=== PATIENT | male | born 1955 | race Caucasian/White ===

== ENCOUNTER 2019-06-18 01:02 | Day surgery (SDC) | payer BC, SELFPAY ==
[2019-06-09 09:09] VITALS: BMI 36.9
--- NOTE | 2019-06-17 16:02 | HP_ITS ---
DATE OF SERVICE: HISTORY: A 63-year-old who cannot breathe out of his nose. PHYSICAL EXAMINATION: HEENT: Septum is deviated to the right with obstruction. CHEST: Clear. HEART: Without murmurs. ABDOMEN: Soft. EXTREMITIES: Negative. REVIEW OF SYSTEMS: Unremarkable. IMPRESSION: Septal deviation. PLAN: Septoplasty. D I MT: Nida
[2019-06-18] VITALS (9 sets, daily range): BP systolic 102–150; BP diastolic 76–100; PULSE 77–105; RESP 10–18; TEMP 36.1; O2SAT 93–98
--- NOTE | 2019-06-18 06:07 | WPDHPUPDATE1 ---
History and Physical Update Update Date/Time: 06/18/19 06:07 History and Physical has been reviewed, including an updated exam of the patient. There are NO changes in the patient's condition. Risks, benefits, and alternatives have been discussed and questions answered. Patient agrees to proceed with procedure.
--- NOTE | 2019-06-18 06:10 | ECG_ITS ---
Measurements Intervals [place] Rate: 79 P: 1 ID: 150 QRS: -2 QRSD: 97 T: 29 QT: 350 QTc: 402 Interpretive Statements SINUS RHYTHM BASELINE ARTIFACT- I, II, AVR, AVL NORMAL ECG Electronically Signed On 06-18-2019 8:39:18 HOME COORDINATOR by Valentín Carlson D.O.
[2019-06-18] MEDS: LACTATED RINGERS 1,000 ML 30 ML IV CONT (08:35)
--- NOTE | 2019-06-18 09:32 | PM.PROC ---
Procedure Note - Detailed Date of procedure: 06/18/19 Pre-op diagnosis: Nasal Septal Deviation Post-op diagnosis: same Procedure performed: Patient was prepped and draped in usual fashion after general anesthesia. The nose was injected with xylocaine with Adrenalin and packed with Neosporin Tab-Synephrine on cottonoids. A [] kimber transfixation was made anterior and posterior tunnel was elevated. The bony cartilage junction . The bony deviation was removed in its entirety. The middle turbinates were then medialized and uncinectomy was done on both sides the ethmoid bulla was opened with micro debride her. Tissue was removed the natural ostia of the maxillary sinus was opened and tissue was removed the nose was then packed with Surgicel patient awakened returned to recovery good condition. Anesthesia: GLMA, GETA and none Surgeon: Marcus Kraus MD Estimated blood loss (mL): 5 Drains: No Packing: No Complications: No immediate complications Condition: stable Disposition: PACU
[2019-06-18] MEDS: LIDO 1%/EPINEPHRINE 1:100,000 20 ML VIAL 3 ML INFILTRATE (09:33)
--- NOTE | 2019-06-18 09:37 | WPDANESEPPF ---
Anes - Initial Pre Proc Eval Procedure: Operation Date: 06/18/19 10:00 Proposed Procedures p Septoplasty - Marcus Kraus MD Date/Time: 06/18/19 09:37 Surgeon: Marcus Kraus MD Pre Op Diagnosis: Nasal Septal Deviation Patient Data Age: 63 Gender: M Height: 6 ft 1 in Weight: 127 kg Last Vital Signs Temp 36.1 C L 06/18/19 08:10 Pulse 95 06/18/19 08:10 Resp 18 06/18/19 08:10 BP 149/100 H 06/18/19 08:10 Pulse Ox 98 06/18/19 08:10 Allergies Allergy/AdvReac Type Severity Reaction Status Date / Time No Known Allergies Allergy Verified 06/18/19 08:17 Home Medications Medication Instructions Recorded Confirmed Type simvastatin 40 mg tablet 40 mg PO DAILY 04/19/19 06/18/19 History amlodipine 10 mg tablet 10 mg PO DAILY #90 tablet 04/20/19 06/18/19 Rx celecoxib 200 mg capsule 200 mg PO DAILY #90 cap 04/20/19 06/18/19 Rx indapamide 1.25 mg tablet 1.25 mg PO DAILY #90 tablet 04/20/19 06/18/19 Rx lisinopril 40 mg tablet 40 mg PO DAILY #90 tablet 04/20/19 06/18/19 Rx fluticasone propionate [Flonase 1 spray INTRANASAL DAILY 06/09/19 06/18/19 History Allergy Relief] suvorexant [Belsomra] 20 mg PO QPM 06/09/19 06/18/19 History UB-DF-vlyvnq/GC-znqaak-zkzyhbi 1 cap PO Q6H PRN 06/18/19 06/18/19 History [Vicks DayQuil-NyQuil] acetaminophen [Tylenol Arthritis 650 mg PO Q12H PRN 06/18/19 06/18/19 History Pain] calcium polycarbophil [FiberCon] 625 mg PO DAILY 06/18/19 06/18/19 History loratadine 10 mg PO DAILY 06/18/19 06/18/19 History omeprazole 20 mg PO BID PRN 06/18/19 06/18/19 History Patient hx anesthesia problems: none Family hx anesthesia problems: none PMFSH Past Medical History Medical History Essential (primary) hypertension Mixed hyperlipidemia Polyarticular arthritis Stage 3 acute kidney injury Visit for [facility] Social History Social History Smoking status: Never smoker Alcohol intake: current Anes - Eval Final PreProcedure Day of Procedure 06/18/19 09:37 Patient weight: obese Heart: regular rate and rhythm Lungs: clear to auscultation Airway: Mallampati scale class II Neurological: alert and oriented Last oral intake: >/= 8 hours ASA classification: III Emergent: no Anesthetic plan: proceed Anesthesia type and monitoring: general ETT and standard monitoring Informed Consent: The patient's anesthetic plan and its attendant risks and benefits were discussed with the patient/family/POA. Questions were solicited and answers provided to the satisfaction of the patient/family/POA.
--- NOTE | 2019-06-18 09:52 | PM.PROC ---
Procedure Note - Detailed Date of procedure: 06/18/19 Pre-op diagnosis: Nasal Septal Deviation Post-op diagnosis: same Procedure performed: Patient was prepped and draped in usual fashion after general anesthesia. The nose was injected with xylocaine with Adrenalin and packed with Neosporin Tab-Synephrine on cottonoids. A [] kimber transfixation was made anterior and posterior tunnel was elevated. The bony cartilage junction . The bony deviation was removed in its entirety. The middle turbinates were then medialized and uncinectomy was done on both sides the ethmoid bulla was opened with micro debride her. Tissue was removed the natural ostia of the maxillary sinus was opened and tissue was removed the nose was then packed with Surgicel patient awakened returned to recovery good condition. Anesthesia: GLMA and GETA Surgeon: Marcus Kraus MD Estimated blood loss (mL): 25 Drains: No Packing: Yes Pathology: none sent Complications: No immediate complications Condition: stable Disposition: PACU
== END 2019-06-18 12:20 | disposition home or self-care (01) ==
PROVIDERS: PCP Family Medicine; Visit Provider Otolaryngology
PROC: (CPT 30520; principal; 2019-06-18 10:00)
DX: J34.2 Deviated nasal septum (principal); I10 Essential (primary) hypertension; E78.2 Mixed hyperlipidemia; M19.90 Unspecified osteoarthritis, unspecified site; N28.89 Other specified disorders of kidney and ureter; E66.9 Obesity, unspecified; Z68.36 Body mass index [BMI] 36.0-36.9, adult
CPT/HCPCS: 30520; 93005; A9270; J0131; J0330; J1100; J2250; J2405; J2704; J3010; J7120

== ENCOUNTER 2019-10-27 07:28 | Outpatient (CLI) | payer BC, SELFPAY ==
[2019-10-27 07:50] LABS: Hematocrit 42.2 % (42.0-52.0); Hemoglobin 14.3 g/dL (14.0-18.0); Mean Corpuscular HGB Conc 33.9 g/dl (32-36); Mean Corpuscular Hemoglobin 31.2 pg (26-34); Mean Corpuscular Volume 91.9 fl (80-100); Mean Platelet Volume 10.2 fl (7.4-10.4); Platelet Count Result 227 k/mm3 (150-375); Red Blood Count 4.59 M/mm3 (4.6-6.20); Red Cell Distribution Width 12.1 % (11.5-14.5); White Blood Count 4.6 K/mm3 (4.5-10.0)
[2019-10-27 07:59] LABS: Albumin Level 4.7 g/dL (3.5-5.1); Blood Urea Nitrogen 29 mg/dL (9-20); Calcium 9.6 mg/dL (8.4-10.2); Carbon Dioxide 27 mmol/L (22-30); Chloride 100 mmol/L (98-107); Estimated Glomerular Filt Rate 47; Glucose 111 mg/dL (75-110); Phosphorus 2.9 mg/dL (2.5-4.5); Potassium 4.4 mmol/L (3.4-5.0); Sodium 134 mmol/L (137-145)
[2019-10-27 08:13] LABS: Creatinine Urine 131.2 mg/dL; Total Protein Urine Random 9 mg/dL
[2019-10-27 08:34] LABS: Vitamin D 25 Hydroxy 48.7 ng/mL
== END 2019-10-27 07:29 | disposition home or self-care (01) ==
LOC: ANHLAB 07:29
PROVIDERS: PCP Family Medicine; Visit Provider Internal Medicine Nephrology
DX: I12.9 Hypertensive chronic kidney disease with stage 1 through stage 4 chronic kidney disease, or unspecified chronic kidney disease (principal); N18.3 Chronic kidney disease, stage 3 (moderate)
CPT/HCPCS: 36415; 80069; 82306; 82570; 83970; 84156; 85027

== ENCOUNTER 2020-01-21 11:18 | Outpatient (CLI) | payer OTHER, BC, SELFPAY ==
--- NOTE | ~2020-01-21 | XR_ITS ---
EXAMINATION: XR_[id number]_CR EXAM DATE: 01/21/2020 12:08 INDICATION: Cervicalgia, right-sided neck pain after injury. TECHNIQUE: Cervical spine frontal, lateral, lateral swimmers, and open-mouth odontoid projections. There is no prior study for comparison. FINDINGS: There is moderate disc disease at C5-6. There is 2 mm anterolisthesis C4 on C5. The odonto id process is intact. The lateral masses of C1 line up with C2. Prevertebral soft tissue and pre-den s space are within normal limits. There is moderate cervical facet arthropathy and mid cervical uncov ertebral joint arthropathy. There may be 2 or 3 mm anterolisthesis C7 on T1. Lung apices unremarkable . IMPRESSION: Moderate C5-6 disc disease. Moderate cervical arthropathy. Reviewed, dictated and finalized at location B.
--- NOTE | ~2020-01-21 | XR_ITS ---
EXAMINATION: XR shoulder RT min 2V DATE: 01/21/2020 12:08 INDICATION: Right shoulder pain. Injury. TECHNIQUE: 4 views of right shoulder were obtained. COMPARISON: None. FINDINGS: Bone alignment is normal. No fracture. There is mild osteoarthritis of glenohumeral joint a nd moderate osteoarthritis of acromioclavicular joint. A calcified right lung nodule and calcified me diastinal lymph nodes are consistent with old granulomatous disease. IMPRESSION: 1. Polyarticular osteoarthritis. Reviewed, dictated and finalized at location A.
== END 2020-01-21 11:19 | disposition home or self-care (01) ==
PROVIDERS: PCP Family Medicine; Visit Provider Nurse Practitioner Family
DX: M54.2 Cervicalgia (principal); S49.90XA Unspecified injury of shoulder and upper arm, unspecified arm, initial encounter; M15.9 Polyosteoarthritis, unspecified
CPT/HCPCS: 72040; 73030

== ENCOUNTER → 2020-02-19 10:31 | Outpatient (CLI) | payer OTHER, BC, SELFPAY ==
--- NOTE | ~2020-02-19 | MR_ITS ---
EXAMINATION: MR shoulder RT wo con, MR scapula RT wo con DATE: 02/19/2020 11:56 INDICATION: Right shoulder and upper arm pain and right upper back pain TECHNIQUE: 1. Magnetic resonance imaging (MRI) of the right shoulder was performed without intravenous contrast. Sequences included axial PD-weighted FS FSE, coronal oblique PD-weighted FS FSE, coronal oblique T2- weighted FS FSE, sagittal PD-weighted FS FSE, and sagittal T1-weighted SE. 2. MRI of the right scapula was performed without intravenous contrast. Sequences included axial, sag ittal and coronal T1-weighted FSE and T2-weighted FS FSE. COMPARISON: Right shoulder radiographs dated 01/21/2020 FINDINGS: Coracoacromial arch: The acromion undersurface is curved in morphology (type II). The coracoacromial ligament is normal. M ild to moderate acromioclavicular osteoarthritis with small inferiorly directed osteophytes which exe rts mild mass effect upon the cephalad surface of the supraspinatus but with retained thin intervenin g fat plane. Rotator cuff: Mild mild tendinopathy without discrete tear of the supraspinatus and anterior infraspinatus tendons. The teres minor and subscapularis tendons are normal. Normal rotator cuff muscle bulk and signal. Biceps tendon, glenoid labrum and glenohumeral cartilage: Long head of the biceps tendon is normal. There is increased signal in the anteroinferior and inferio r glenoid labrum consistent with likely degenerative tearing. Glenohumeral cartilage is normal. Fluid: Physiologic amount of fluid in the glenohumeral joint and biceps tendon sheath. No loose osteochondra l bodies. No abnormal fluid signal at the subacromial/subdeltoid bursa to suggest bursitis. Bones/other: Bone alignment is normal. Normal marrow signal with no fracture or pathologic marrow replacing proces s. Mild cystic change at the greater tuberosity. The posterior chest wall musculature and the ribs un derlying the scapula are unremarkable. IMPRESSION: 1. Mild supraspinatus and anterior infraspinatus tendinopathy without discrete tear. Line 2. Degeneration along the anteroinferior and inferior glenoid labrum. 3. Mild to moderate acromioclavicular osteoarthritis. Reviewed, dictated and finalized at location A. IMPRESSION: 1. Mild supraspinatus and anterior infraspinatus tendinopathy without discrete tear. Line 2. Degeneration along the anteroinferior and inferior glenoid labrum. 3. Mild to moderate acromioclavicular osteoarthritis.
== END ==
PROVIDERS: PCP Family Medicine; Visit Provider Nurse Practitioner Family
DX: S49.90XA Unspecified injury of shoulder and upper arm, unspecified arm, initial encounter (principal); X58.XXXA Exposure to other specified factors, initial encounter; M19.011 Primary osteoarthritis, right shoulder
CPT/HCPCS: 73218; 73221

== ENCOUNTER 2020-04-02 06:53 | Outpatient (CLI) | payer BC, SELFPAY ==
[2020-04-02 07:59] LABS: Hematocrit 42.6 % (42.0-52.0); Hemoglobin 14.5 g/dL (14.0-18.0); Mean Corpuscular Hemoglobin 31.5 pg (26-34); Mean Corpuscular Volume 92.6 fl (80-100); Mean Platelet Volume 10.2 fl (7.4-10.4); Platelet Count Result 254 k/mm3 (150-375); Red Cell Distribution Width 12.1 % (11.5-14.5); White Blood Count 5.6 K/mm3 (4.5-10.0)
[2020-04-02 08:10] LABS: Total Protein Urine Random 8 mg/dL; Ur Ttl Prot Creatinine Ratio 0.05 mg/mg (0-0.20)
[2020-04-02 08:15] LABS: Potassium 4.1 mmol/L (3.4-5.0)
[2020-04-02 08:16] LABS: Alanine Aminotransferase 34 U/L (4-50); Albumin Level 4.6 g/dL (3.5-5.1); Alkaline Phosphatase 70 U/L (38-126); Anion Gap 8 mmol/L (8-16); Aspartate Amino Transferase 39 U/L (17-59); Bilirubin,Total 0.6 mg/dL (0.2-1.3); Blood Urea Nitrogen 30 mg/dL (9-20); Calcium 9.7 mg/dL (8.4-10.2); Carbon Dioxide 29 mmol/L (22-30); Chloride 98 mmol/L (98-107); Cholesterol 232 mg/dL (0-200); Estimated Glomerular Filt Rate 44; Glucose 103 mg/dL (75-110); HDL Direct 37 mg/dL; Potassium 4.2 mmol/L (3.4-5.0); Sodium 135 mmol/L (137-145); Triglycerides 272 mg/dL (<150)
[2020-04-02 08:20] LABS: Albumin Level 4.5 g/dL (3.5-5.1); Anion Gap 6 mmol/L (8-16); Blood Urea Nitrogen 31 mg/dL (9-20); Calcium 9.6 mg/dL (8.4-10.2); Carbon Dioxide 30 mmol/L (22-30); Chloride 97 mmol/L (98-107); Estimated Glomerular Filt Rate 44; Glucose 102 mg/dL (75-110); Sodium 133 mmol/L (137-145)
[2020-04-02 08:27] LABS: LDL Cholesterol Direct 143 mg/dL; Parathyroid Intact 34.1 pg/mL (7.5-53.5)
[2020-04-02 08:56] LABS: Vitamin D 25 Hydroxy 39.3 ng/mL
== END 2020-04-02 06:54 | disposition home or self-care (01) ==
LOC: ANHLAB 06:55
PROVIDERS: PCP Family Medicine; Visit Provider Nurse Practitioner Family
DX: N18.30 Chronic kidney disease, stage 3 unspecified (principal); E78.2 Mixed hyperlipidemia; I12.9 Hypertensive chronic kidney disease with stage 1 through stage 4 chronic kidney disease, or unspecified chronic kidney disease
CPT/HCPCS: 36415; 80053; 80061; 80069; 82306; 82570; 83970; 84156; 84443; 85027

== ENCOUNTER 2020-08-03 15:28 | Outpatient (CLI) | payer BC, SELFPAY | END 2020-08-03 15:29 | disposition home or self-care (01) | LOC: ANHCOVIDVC 15:28 | PROVIDERS: PCP Family Medicine | DX: Z23 Encounter for immunization (principal) | CPT/HCPCS: 0001A; 91300 ==

== ENCOUNTER 2020-08-21 08:05 | Inpatient (IN) | payer BC, SELFPAY ==
[2020-08-21] VITALS (13 sets, daily range): BP systolic 114–173; BP diastolic 79–102; PULSE 68–118; RESP 10–20; TEMP 36.3–36.8; O2SAT 97–100; BMI 37.8
--- NOTE | ~2020-08-21 | XR_ITS ---
EXAMINATION: XR chest 1V portable DATE: 08/21/2020 08:31 INDICATION: Chest pain. Shortness of breath. TECHNIQUE: A single frontal view of the chest was obtained on 2 radiographs. COMPARISON: Chest 2 views 10/15/2017, chest CT 05/23/2016 FINDINGS: Calcified right lung nodules and calcified right hilar and mediastinal lymph nodes are cons istent with old granulomatous disease. No pleural effusion or pneumothorax. The heart size is normal. IMPRESSION: 1. No acute cardiopulmonary disease. Reviewed, dictated and finalized at location A.
--- NOTE | 2020-08-21 08:08 | ECG_ITS ---
Measurements Intervals [place] Rate: 120 P: 19 IN: 172 QRS: -13 QRSD: 100 T: 38 QT: 311 QTc: 440 Interpretive Statements SINUS TACHYCARDIA BASELINE ARTIFACT- II, III, AVR, AVL, AVF ABNORMAL ECG Electronically Signed On 08-21-2020 8:41:33 CDT by Valentín Carlson D.O.
[2020-08-21] MEDS: ASPIRIN 81 MG CHEWABLE TABLET 324 MG PO (08:13)
[2020-08-21 08:22] LABS: Basophils Absolute Auto 0.1 K/mm3 (0.0-0.1); Basophils Percent Auto 0.7 % (0.2-1.2); Eosinophils Absolute Auto 0.2 K/mm3 (0-0.3); Eosinophils Percent Auto 2.9 % (0-4.4); Hematocrit 44.9 % (42.0-52.0); Hemoglobin 15.1 g/dL (14.0-18.0); Immature Granulocyte Absolute 0.02 K/mm3 (0.00-0.031); Immature Granulocyte Percent A 0.2 % (0-0.5); Lymphocytes Absolute Auto 1.85 K/mm3 (0.9-3.2); Lymphocytes Percent Auto 22.9 % (18.3-44.2); Mean Corpuscular HGB Conc 33.6 g/dl (32-36); Mean Corpuscular Hemoglobin 31.4 pg (26-34); Mean Corpuscular Volume 93.3 fl (80-100); Mean Platelet Volume 10.4 fl (7.4-10.4); Monocytes Absolute Auto 1.1 K/mm3 (0.1-0.6); Monocytes Percent Auto 13.1 % (2.6-8.5); Neutrophils Absolute Auto 4.9 K/mm3 (1.3-6.7); Neutrophils Percent Auto 60.2 % (45.5-73.1); Platelet Count Result 287 k/mm3 (150-375); Red Blood Count 4.81 M/mm3 (4.6-6.20); Red Cell Distribution Width 12.2 % (11.5-14.5); White Blood Count 8.1 K/mm3 (4.5-10.0)
--- NOTE | 2020-08-21 08:23 | ECG_ITS ---
Measurements Intervals [place] Rate: 105 P: 29 WV: 145 QRS: 6 QRSD: 102 T: 43 QT: 328 QTc: 434 Interpretive Statements SINUS TACHYCARDIA ST ELEVATION IN ANTEROLAT/INF LEADS- CONSIDER ACUTE INJURY BASELINE ARTIFACT- V2, AVR, AVF ABNORMAL ECG Electronically Signed On 08-21-2020 12:28:50 CDT by Valentín Carlson D.O.
[2020-08-21 08:32] LABS: Anion Gap 10 mmol/L (8-16); Blood Urea Nitrogen 28 mg/dL (9-20); Calcium 9.5 mg/dL (8.4-10.2); Carbon Dioxide 24 mmol/L (22-30); Chloride 104 mmol/L (98-107); Estimated CRCL calculation 57 ml/min; Estimated Glomerular Filt Rate 41; Glucose 113 mg/dL (75-110); Potassium 3.9 mmol/L (3.4-5.0); Sodium 138 mmol/L (137-145)
[2020-08-21] MEDS: ONDANSETRON INJ 4 MG/2 ML VIAL IV PUSH (08:38)
--- NOTE | 2020-08-21 08:43 | ECG_ITS ---
Measurements Intervals [place] Rate: 104 P: 30 OR: 152 QRS: 3 QRSD: 99 T: 33 QT: 343 QTc: 453 Interpretive Statements SINUS TACHYCARDIA ST ELEVATION IN ANTEROLAT/INF LEADS- CONSIDER ACUTE INJURY ABNORMAL ECG Electronically Signed On 08-21-2020 12:27:49 CDT by Valentín Carlson D.O.
[2020-08-21 08:44] LABS: Troponin I 0.016 ng/mL (0.000-0.034)
[2020-08-21] MEDS: NITROGLYCERIN SL 0.4 MG TABLET SUBLINGUAL (08:44)
[2020-08-21 08:47] LABS: INR 0.9; Prothrombin Time 12.7 Seconds (11.1-14.7)
[2020-08-21 08:48] LABS: Partial Thromboplastin Time 34.1 SECONDS (22.3-36.8)
[2020-08-21] MEDS: MORPHINE SULFATE (*CRX) 2 MG/ML INJ (08:53)
[2020-08-21] MEDS: PANTOPRAZOLE SODIUM IV 40 MG VIAL IV PUSH (08:57)
--- NOTE | 2020-08-21 09:05 | PM.IMHP ---
H&P: HPI History of Present Illness Date/Time: 08/21/20 09:05 Chief Complaint: Chest pain Narrative: Date of service 08/21/2020 History: Patient is a 64-year-old male who has hypertension, hyperlipidemia, family history of coronary disease, former smoker and obesity who presented to the hospital with acute onset of chest pain today. Patient states that his chest pain started about an hour ago. Chest pain actually initially started in the arm and then went to the left upper chest area. He does describe some associated shortness of breath as well as some sweatiness. Pain is severe. It is not pleuritic. He has been given aspirin and while I am assessing the patient is given nitroglycerin. He did have mild relief of the chest pain with the nitroglycerin. He does not have diabetes. He denies any recent syncope but does have some occasional presyncopal episodes. He also has some blurry vision and a couple of times in the past he has had loss of vision in his eye. No recent paroxysmal nocturnal dyspnea, orthopnea, significant edema or palpitations. Review of Systems Review of Systems: All systems reviewed & are unremarkable except as noted in HPI and below Constitutional: Constitutional: Denies weakness Eyes: Eyes: Reports blurry vision ENT: Reports Normal hearing present Cardiovascular: Cardiovascular: Reports chest pain Respiratory: Respiratory: Reports dyspnea Gastrointestinal: Gastrointestinal: Denies abdominal pain Genitourinary: Genitourinary: Denies dysuria Musculoskeletal: Musculoskeletal: Denies neck pain Integumentary/Breasts: Skin/Breast: Denies dry skin Neurologic: Denies headache(s) Psychiatric: Psychiatric: Reports anxiety Endocrine: Endocrine: Denies fatigue Hematologic/Lymphatic: Hematologic/Lymphatic: Denies easy bleeding Allergic/Immunologic: Allergic/Immunologic: Denies GI upset with certain foods PMFSH Past Medical History Medical History Arthritis of shoulder region, right, degenerative BMI 36.0-36.9,adult Capsulitis of right shoulder Deviated septum Essential (primary) hypertension Mixed hyperlipidemia Polyarticular arthritis Right rotator cuff tendinitis Right shoulder strain Seasonal allergies Stage 3 acute kidney injury Trigger point of right shoulder region Vision abnormalities Visit for [facility] check Surgical History Surgical History History of appendectomy Family History Family History Mother Hypertension Alzheimer disease Father Family history of coronary artery disease Acute myocardial infarction Sibling Family history of coronary artery disease Cerebrovascular accident Other Family history of malignant neoplasm Social History Social History Smoking packs per day: 1 Smoking cigarettes per day: 20.0 Years smoked: 40 Smoking pack-years: 40.00 Tobacco type: cigarettes Smoking end date: 04/29/09 Alcohol intake: never 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 Gender identity (if verbalized by the patient): Male Meds Home Medications and Allergies Home Medications Medication Instructions Recorded Confirmed Type fluticasone propionate [Flonase 1 spray INTRANASAL DAILY 06/09/19 08/21/20 History Allergy Relief] loratadine 10 mg PO DAILY 06/18/19 08/21/20 History celecoxib 200 mg capsule 200 mg PO DAILY #90 cap 04/01/20 08/21/20 Rx simvastatin 40 mg tablet 40 mg PO DAILY #20 tablet 04/26/20 08/21/20 Rx amlodipine 10 mg tablet 10 mg PO DAILY #90 tablet 05/18/20 08/21/20 Rx indapamide 1.25 mg tablet 1.25 mg PO DAILY #90 tablet 05/18/20 08/21/20 Rx lisinopril 40 mg tablet 40 mg PO DAILY #90 tablet 05/18/20 08/21/20 Rx suvorexant 20 mg tablet 20 mg PO QPM #30
[2020-08-21 09:18] LABS: Cholesterol 193 mg/dL (0-200); HDL Direct 35 mg/dL; Triglycerides 284 mg/dL (<150)
--- NOTE | 2020-08-21 09:22 | WPDCARDPROC ---
Cardiac Cath Procedure Note Date of procedure:: 08/21/20 Performing physician:: Mayank Lomeli MD Date of service 08/21/2020 Indication:: Possible STEMI Brief clinical history:: this 64-year-old patient with past medical history of hypertension, hyperlipidemia and family history of CAD since the hospital for shortness of breath left arm pain. EKG shows subtle ST elevations V 5 And V 6. RISKS AND BENEFITS OF CARDIAC CATHETERIZATION DISCUSSED WITH PATIENT HE AGREES TO PROCEED. Procedure Procedure performed:: 1-Moderate sedation that started at9:33 a.m. and ended at 10:22 a.m. using 3mg of Versed and 75mcg fentanyl. The registered nurse was Gayle Mcnamara. 2-Selective left and right coronary angiogram. 3-Left heart catheterization with measurement of LVEDP and measurement of gradient across aortic valve. 4-Right common femoral arterial angiogram. 5-Deployment of 6 Nepali Angio-Seal. 6- deployment of a drug-eluting stent 3 x 18 covering totally occluded mid left circumflex artery. 7- Deployment of drug-eluting stent 2x12 resolute mahin drug-eluting stent to mid OM 1. Sedation/Medication given:: Moderate sedation. Access site:: Right common femoral artery. Estimated blood loss:: 10cc Procedure note:: After informed consent patient was brought in to clinical laboratory medical director with the was draped and prepped in usual manner. Moderate sedation was given and the right groin was infiltrated using 1% lidocaine. Six Nepali sheath was obtained using micropuncture needle and the modified Seldinger technique. Selective left coronary angiogram was done using JL4 catheter with the tip of the catheter placed in the left main coronary artery. Selective right coronary angiogram was done using JR4 catheter with the tip of the catheter placed to the right coronary artery. After that 5 Nepali pigtail catheter was advanced across the aortic valve into the left ventricle with measurement of LVEDP and measurement of gradient across aortic valve. Right common femoral arterial angiogram was done. after that a guide catheter CLS 3.5 was not successful to engage the left main. We used JL4 guide catheter. Then after that coronary luge wire was advanced to the distal left circumflex artery. Balloon angioplasty was done using 3 x 12 balloon under nominal pressure for 25 seconds 2 inflations. Then deployed drug-eluting stent Xience 3 x 18 covering mid left circumflex artery under nominal pressure for 25 seconds. after that the wire was retrieved and advanced to the OM 1. balloon angioplasty done using 2 x 12 balloon under normal pressure for 25 seconds. Then deployed drug-eluting stent mahin 2 x 12 to mid OM 1 under nominal pressure for 25 seconds Findings:: 1- left coronary artery is a large artery that divides into large LAD, large circumflex artery. distal Left main has 30%. 2- left anterior descending artery is a large artery that runs and wraps around the apex. in the mid segment there is 30% stenosis followed by another 30% stenosis and after Diagonal branch there is 30-40% stenosis. the diagonal branch is medium in size with minimal irregularities. 3- leftcircumflex artery is a large artery Totally occluded in the mid segment. There is OM 1 that is small in size and has in the meds 99%. 4- right coronary artery is Large artery and dominant and has a mid segment diffuse 20-30%. 5- LVEDP was 10 mm Hg and no gradient across aortic valve. 6- opening arterial pressure was 150/80 and closing pressure was 130/70 7- right femoral artery angiogram shows no significant disease in the right common femoral artery. Conclusion:: 1- successful stenting of totally occluded mid left circumflex artery using drug-eluting stent 3 x 18. 2- successful stenting of mid OM1 using 2 x 12 drug-eluting stent. Assessment and Plan Additional Plan 1- Continue aspirin and Brilinta. 2- aggressive risk factor modification for CAD.
--- NOTE | 2020-08-21 09:23 | ED.CHESTPAIN ---
HPI - Chest Pain General Chief Complaint: Chest Pain Stated Complaint: SOB with left arm pain Time Seen by Provider: 08/21/20 08:09 Source: patient Mode of arrival: ambulatory Limitations: no limitations History of Present Illness HPI narrative: This is a 64 year old male with history hypertension, hyperlipidemia, chronic kidney disease who presents for evaluation of left arm pain and indigestion. He states his pain started 30 minutes prior to arrival. He was sitting at rest and he develop left posterior arm pain and left chest pain that he describes as indigestion. He took an unknown medication for his indigestion without relief. He also took aspirin 162 mg at home prior to coming. He has dizziness and sob. He denies history cardiac disease. He states years ago he had a stress test because he had chest pain. This episode is different because he did not have left arm pain at that time. His pain is 8/10. He also reports dizziness. Related Data Home Medications Medication Instructions Recorded Confirmed fluticasone propionate [Flonase 1 spray INTRANASAL DAILY 06/09/19 08/21/20 Allergy Relief] loratadine 10 mg PO DAILY 06/18/19 08/21/20 atorvastatin 40 mg PO HS 08/21/20 08/21/20 Allergies Allergy/AdvReac Type Severity Reaction Status Date / Time tramadol AdvReac Severe Unknown Verified 08/21/20 08:12 Review of Systems Review of Systems: All systems reviewed & are unremarkable except as noted in HPI and below Constitutional: Constitutional: Denies chills, Denies fever(s) and Reports weakness ENT: Reports vertigo Cardiovascular: Cardiovascular: Reports chest pain Respiratory: Respiratory: Denies cough and Reports dyspnea Gastrointestinal: Gastrointestinal: Denies abdominal pain, Denies diarrhea, Reports nausea and Denies vomiting Neurologic: Reports headache(s) [facility] Past Medical History Medical History Arthritis of shoulder region, right, degenerative BMI 36.0-36.9,adult Capsulitis of right shoulder Deviated septum Essential (primary) hypertension Mixed hyperlipidemia Polyarticular arthritis Right rotator cuff tendinitis Right shoulder strain Seasonal allergies Stage 3 acute kidney injury Trigger point of right shoulder region Vision abnormalities Visit for [facility] health check Surgical History Surgical History History of appendectomy Family History Family History Mother Hypertension Alzheimer disease Father Family history of coronary artery disease Acute myocardial infarction Sibling Family history of coronary artery disease Cerebrovascular accident Other Family history of malignant neoplasm Social History Social History Smoking packs per day: 1 Smoking cigarettes per day: 20.0 Years smoked: 40 Smoking pack-years: 40.00 Smoking status: Former smoker Tobacco type: cigarettes Second hand tobacco smoke exposure: No Smoking end date: 04/29/09 Alcohol intake: former Substance use: never Substance use type: does not use 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 Gender identity (if verbalized by the patient): Male Spiritual care concerns: No Exam Const: General: alert Orientation/consciousness: patient oriented x3 HENMT: Head: normocephalic and atraumatic Ears: TM's normal bilaterally General nose exam: Normal external nose present, Normal nares present and No nasal polyps present Face and sinus: face symmetric Mouth: Yes Normal oral and palatal mucosa present, Yes lip normal, Yes oropharynx normal and Yes moist mucous membranes Throat: uvula midline Eyes: Pupils: Equal, round and reactive pupils present EOM: EOMs intact bilaterally Chest: Chest palpation & inspection: normal
--- NOTE | 2020-08-21 09:26 | WPDMODSED ---
Moderate Sedation Note-Pt Data Patient Data Allergies Allergy/AdvReac Type Severity Reaction Status Date / Time tramadol AdvReac Severe Unknown Verified 08/21/20 08:12 Home Medications Medication Instructions Recorded Confirmed Type fluticasone propionate [Flonase 1 spray INTRANASAL DAILY 06/09/19 08/21/20 History Allergy Relief] loratadine 10 mg PO DAILY 06/18/19 08/21/20 History celecoxib 200 mg capsule 200 mg PO DAILY #90 cap 04/01/20 08/21/20 Rx simvastatin 40 mg tablet 40 mg PO DAILY #20 tablet 04/26/20 08/21/20 Rx amlodipine 10 mg tablet 10 mg PO DAILY #90 tablet 05/18/20 08/21/20 Rx indapamide 1.25 mg tablet 1.25 mg PO DAILY #90 tablet 05/18/20 08/21/20 Rx lisinopril 40 mg tablet 40 mg PO DAILY #90 tablet 05/18/20 08/21/20 Rx suvorexant 20 mg tablet 20 mg PO QPM #30 tablet 05/23/20 08/21/20 Rx Sedation/Anesthesia: No previous sedation/anesthesia problems (including family history). [facility] Past Medical History Medical History Arthritis of shoulder region, right, degenerative BMI 36.0-36.9,adult Capsulitis of right shoulder Deviated septum Essential (primary) hypertension Mixed hyperlipidemia Polyarticular arthritis Right rotator cuff tendinitis Right shoulder strain Seasonal allergies Stage 3 acute kidney injury Trigger point of right shoulder region Vision abnormalities Visit for [facility] health check Surgical History Surgical History History of appendectomy Family History Family History Mother Hypertension Alzheimer disease Father Family history of coronary artery disease Acute myocardial infarction Sibling Family history of coronary artery disease Cerebrovascular accident Other Family history of malignant neoplasm Social History Social History Smoking packs per day: 1 Smoking cigarettes per day: 20.0 Years smoked: 40 Smoking pack-years: 40.00 Tobacco type: cigarettes Smoking end date: 04/29/09 Alcohol intake: never 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 Gender identity (if verbalized by the patient): Male Mod Sed Physical Exam Physical Exam Pre Procedural Exam: Normal: Appearance, Eyes, Ears, Nose, Neck, Throat, Airway, Lungs, Heart Size, Heart Rate, Heart Rhythm, Neuro Exam, Abdomen, Liver, Kidneys, Spleen, Breasts, Genitalia, Extremities and Skin Hours since solid foods: 8 Hours since liquid intake: 8 Internal Medicine - PN: Obj Da Vital Signs Vital Signs: Vital Signs - 24 hr 08/21/20 08:09 08/21/20 08:42 08/21/20 08:59 Temperature 36.8 C Pulse Rate 118 H 110 H 102 H Respiratory Rate 20 20 20 Blood Pressure 173/98 H 151/102 H 126/88 Pulse Oximetry 100 100 100 08/21/20 09:00 08/21/20 09:17 Temperature Pulse Rate 101 H 100 Respiratory Rate 20 20 Blood Pressure 123/91 H 148/94 H Pulse Oximetry 100 100 Meds/Results Radiology Results: ITS Impressions Chest X-Ray 08/21/20 08:34 IMPRESSION: 1. No acute cardiopulmonary disease. Labs CBC & Chem 7: 08/21/20 08:15 08/21/20 08:15 Labs: Laboratory Results - last 24 hr 08/21/20 08/21/20 08/21/20 08:15 08:15 08:15 WBC 8.1 RBC 4.81 Hgb 15.1 Hct 44.9 MCV 93.3 MCH 31.4 MCHC 33.6 RDW 12.2 Plt Count 287 MPV 10.4 Immature Gran % (Auto) 0.2 Neut % (Auto) 60.2 Lymph % (Auto) 22.9 Delta % (Auto) 13.1 H Eos % (Auto) 2.9 Baso % (Auto) 0.7 Lymph # (Auto) 1.85 Delta # (Auto) 1.1 H Eos # (Auto) 0.2 Baso # (Auto) 0.1 Abs Immat Gran (auto) 0.02 Absolute Neuts (auto) 4.9 Absolute Nucleated RBC 0.0 Nucleated RBC % 0.0 PT 12.7 INR 0.9 APTT 34.1 Sodium 138 Potassium 3.9 Chloride 104 Carbon Dioxide
[2020-08-21 09:28] LABS: LDL Cholesterol Direct 117 mg/dL
--- NOTE | 2020-08-21 10:56 | ECG_ITS ---
Measurements Intervals [place] Rate: 70 P: 15 WI: 160 QRS: -5 QRSD: 109 T: 43 QT: 405 QTc: 439 Interpretive Statements SINUS RHYTHM WITH SINUS ARRHYTHMIA EARLY PRECORDIAL R/S TRANSITION BASELINE ARTIFACT- I, II, III, AVR, AVL, AVF BORDERLINE ECG Electronically Signed On 08-21-2020 20:08:38 CDT by Valentín Carlson D.O.
[2020-08-21] MEDS: SODIUM CHLORIDE 0.9% IV 1,000 ML 125 ML IV CONT (11:14)
--- NOTE | 2020-08-21 11:30 | ADMGEN ---
This patient, Pedro Joshua, was admitted to Intensive Care Unit-9. Patient/family oriented to hospital policies and general routines including ID bracelet, bed and alarms, visiting hours, pain management, procedures, bathroom and other care routines, personal items, smoking policy, room service/diet, and visiting hours. Information on how to activate the Rapid Response Team has been discussed. Patient/Family are encouraged to report perceived risks to care and to ask questions if they do not understand what they are told or what they should do.
--- NOTE | 2020-08-21 15:26 | PHAR ---
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
[2020-08-21] MEDS: PHARMACIST COMMUNICATION ORDER 1 EACH XX (15:34)
[2020-08-21] MEDS: ATORVASTATIN 40 MG TABLET PO (21:09)
[2020-08-21] MEDS: TICAGRELOR 90 MG TABLET PO (21:10)
[2020-08-22] VITALS (15 sets, daily range): BP systolic 102–134; BP diastolic 64–100; PULSE 66–108; RESP 10–20; TEMP 36.5–36.9; O2SAT 96–99
[2020-08-22 04:57] LABS: Anion Gap 6 mmol/L (8-16); Blood Urea Nitrogen 21 mg/dL (9-20); Calcium 8.7 mg/dL (8.4-10.2); Carbon Dioxide 29 mmol/L (22-30); Chloride 100 mmol/L (98-107); Estimated CRCL calculation 66 ml/min; Estimated Glomerular Filt Rate 47; Glucose 106 mg/dL (75-110); Sodium 135 mmol/L (137-145)
[2020-08-22] MEDS: ASPIRIN 81 MG ENTERIC TABLET PO (08:31)
[2020-08-22] MEDS: lisinopriL 20 MG TABLET 40 MG PO (08:31)
[2020-08-22] MEDS: INDAPAMIDE 1.25 MG TABLET PO (08:31)
[2020-08-22] MEDS: LORATADINE 10 MG TABLET PO (08:31)
[2020-08-22] MEDS: TICAGRELOR 90 MG TABLET PO ×2 (08:31→20:40)
[2020-08-22] MEDS: ATORVASTATIN 40 MG TABLET PO ×2 (08:32→20:40)
[2020-08-22] MEDS: amLODIPine BESYLATE 5 MG TABLET 10 MG PO (08:32)
[2020-08-22] MEDS: FLUTICASONE PROPIONATE 0.05% NA SPR 16 GM BTL (*BKC) 1 SPRAY NASAL (08:32)
--- NOTE | 2020-08-22 11:04 | WPDCNINT ---
Assessment and Plan Assessment and plan (1) STEMI (ST elevation myocardial infarction): Code(s): I21.3 - ST elevation (STEMI) myocardial infarction of unspecified site Status: Acute Assessment and Plan: Patient presented with chest pain, shortness of breath, diaphoresis, radiation of the pain to the left arm, EKG showed concerning for acute injury. Patient was taken to the [facility] where he was found to have an occlusion of his mid right circumflex and mid OM1. Patient received MAUREEN x1 to mid right circumflex and MAUREEN x1 to mid OM1 -no arrhythmias noted overnight -cardiology following the patient -continue aspirin, Brilinta, -will discuss with cardiology regarding beta-blockers (2) CKD (chronic kidney disease), stage III: Code(s): N18.30 - Chronic kidney disease, stage 3 unspecified Status: Acute Assessment and Plan: Urine output has been adequate, creatinine trending down will continue to monitor (3) Mixed hyperlipidemia: Code(s): E78.2 - Mixed hyperlipidemia Status: Acute Assessment and Plan: Continue atorvastatin (4) Essential (primary) hypertension: Code(s): I10 - Essential (primary) hypertension Status: Acute Assessment and Plan: Continue amlodipine, lisinopril, indapamide (5) Former tobacco use: Code(s): Z87.891 - Personal history of nicotine dependence Status: Acute Assessment and Plan: Does not smoke anymore Additional Plan Discussed with patient updated him with his condition and plan of care, I answered all his questions Code status: Full code Critical care time spent: 41 minutes This dictation may have been done utilizing a voice recognition system. Attempts have been made to correct errors. However, there may be uncorrected grammatical, spelling, and recognition errors present. Due to a high probability of clinically significant, life threatening deterioration, the patient required my highest level of preparedness to intervene emergently and I personally spent this critical care time directly and personally managing the patient. This critical care time included obtaining a history; examining the patient; pulse oximetry; ordering and review of studies; arranging urgent treatment with development of a management plan; evaluation of patient's response to treatment; frequent reassessment; and discussions with other providers. It was exclusive of separately billable procedures and treating other patients and teaching time. Please see Assessment and Plan section and the rest of the note for further information on patient assessment and treatment School Janitor Consult Note Consult date: 08/22/20 Time Seen: 07:14 Reason for consult: ST-elevation [place] status post MAUREEN x1 to mid left circumflex, MAUREEN x1 to mid OM1 HPI: Pedro Joshua is a 64 year old male With significant past medical history of essential hypertension, hyperlipidemia, stage 3 kidney disease, arthritis, family history for coronary artery disease, former smoker, obesity presented the ED on 08/21/2020 complains of acute onset of chest pain that started 1 hour prior to arrival to the ED. Patient complained that the pain radiated to left arm and was associated with shortness of breath and diaphoresis. He rated the pain as severe, was given aspirin and nitroglycerin with mild relief in the chest pain. EKG showed ST- T changes in the inferior and laterally. Patient was taken to the [facility] where he was found to have an occluded mid circumflex and mid OM1, each of the arteries received MAUREEN x1. Patient was transferred to the ICU for further management Patient seen examined this morning, no arrhythmias overnight. Patient has been slightly tachycardic. Denies any chest pain, shortness of breath, abdominal pain, nausea, vomiting. Patient has had adequate urine output has been afebrile. His creatinine improved from 1.7 to 1.5 this morning. Review of Systems Review of Systems: Yovanny
--- NOTE | 2020-08-22 11:49 | ECHO_ITS ---
Patient Info Name: Pedro Joshua Age: 64 years : 1955 Gender: Male Ht: 73 in Wt: 299 lbs BSA: 2.70 m2 HR: 97 bpm BP: 130 / 86 mmHg Heart Rhythm: Sinus Rhythm Technical Quality: Good Exam Date: 08/22/2020 2:43 PM Exam Location: [facility] Card Pulmonary Patient Status: Inpatient Admit Date: 08/21/2020 Staff Ordering Physician: Erasmo Goyal MD Crystal Syrup Maker: Ricky Barakat, JEFERSON, RT Attending Provider: Mayank Lomeli MD Referring Physician: Jyotsna JIMÉNEZ; Exam Type: CA echo dop color flow w con Study Info Indications I50.9 - Heart failure, unspecified Contrast/Agitated Saline Contrast/Ag. Saline: Definity Amount: 2.00 ml Administered By: Farrah Mackenzie RN Existing IV Access: Yes IV Access Condition: patent with no signs of infiltration Summary 1. Technically difficult study with limited views. Regional wall motion assessment limited despite definity contrast enhancement. 2. There is moderately increased left ventricular wall thickness. 3. Left ventricular systolic function is normal, estimated at 55%. 4. The left ventricular diastolic function is grade I diastolic dysfunction. 5. Right atrial chamber dimension is mildly enlarged. 6. There is no aortic valve stenosis. 7. There is mild mitral valve regurgitation. 8. There is mild tricuspid valve regurgitation. 9. No pulmonary hypertension, estimated pulmonary arterial systolic pressure is 26 mmHg. Left Ventricle Left ventricular chamber dimension is normal. Left ventricular systolic function is normal, estimated at 55%. There is moderately increased left ventricular wall thickness. The left ventricular diastolic function is grade I diastolic dysfunction. Technically difficult study with limited views. Regional wall motion assessment limited despite definity contrast enhancement. Right Ventricle Right ventricular chamber dimension is normal. Right ventricular systolic function is normal. Left Atria Left atrial chamber dimension is normal. Right Atria Right atrial chamber dimension is mildly enlarged. Aortic Valve The aortic valve is trileaflet. There is no aortic valve stenosis. There is trace aortic valve regurgitation. Pulmonic Valve The pulmonic valve is not well visualized. There is mild pulmonic regurgitation. Mitral Valve The mitral valve has normal leaflets. There is mild mitral valve regurgitation. The mitral valve annulus is mildly calcified. Tricuspid Valve The tricuspid valve leaflets are normal. There is mild tricuspid valve regurgitation. No pulmonary hypertension, estimated pulmonary arterial systolic pressure is 26 mmHg. Pericardium/Pleural The pericardium appears epicardial fat pad. There is trivial pericardial effusion. Aorta The aortic root size at the sinus of Valsalva is normal. Left Ventricular Outflow Tract Name Value Normal LVOT 2D LVOT Diameter 2.19 cm LVOT Doppler LVOT Peak Velocity 88.34 cm/s LVOT Peak Gradient 3 mmHg LVOT Mean Gradient 2 mmHg
--- NOTE | 2020-08-22 14:07 | PM.PNCARD ---
Progress Note: A&P Assessment and Plan (1) ACS (acute coronary syndrome): Code(s): I24.9 - Acute ischemic heart disease, unspecified Status: Acute Assessment and Plan: Status post STEMI doing well status post MAUREEN 3 x 18 mm Xience to mid L Cx and 2x12mm Royal to mid OM1. Continue dual antiplatelet therapy and Brilinta. Aspirin 81 mg daily. Initiate metoprolol tartrate 25 mg b.i.d.. Continue lisinopril 40 mg daily, atorvastatin 40 mg at bedtime. -will obtain 2D echocardiogram. -transfer to telemetry bed this afternoon. If stable overnight without new concerns anticipate discharge home tomorrow follow up as an outpatient with Dr. Real Parra. -we discussed post cardiac catheterization precautions, plans for cardiac rehabilitation an additional restrictions post myocardial infarction. -cont telemetry to monitor for ventricular arrhythmias. (2) Essential (primary) hypertension: Code(s): I10 - Essential (primary) hypertension Status: Acute Assessment and Plan: Fair control at this time. Continue current medical therapy. (3) Mixed hyperlipidemia: Code(s): E78.2 - Mixed hyperlipidemia Status: Acute Assessment and Plan: On statin LDL 117 goal LDL less than 70. (4) Obesity: Code(s): E66.9 - Obesity, unspecified Status: Acute Assessment and Plan: Lifestyle modification counseling. (5) Former tobacco use: Code(s): Z87.891 - Personal history of nicotine dependence Status: Acute Assessment and Plan: Must remain smoke-free (6) Family history of premature coronary artery disease: Code(s): Z82.49 - Family history of ischemic heart disease and other diseases of the circulatory system Status: Acute Assessment and Plan: Brother had bypass and dad from a myocardial infarction (7) CKD (chronic kidney disease), stage III: Code(s): N18.30 - Chronic kidney disease, stage 3 unspecified Status: Acute Assessment and Plan: Stable, creatinine 1.5 this morning. Subjective Date/time seen: Date of service: 08/22/20 14:07 Follow-up for ST-elevation [place] Doing well overnight. No recurrent chest pain or significant shortness of breath. No dizziness. Ambulating without great difficulty. Denies leg pain. Tolerating medications. No significant arrhythmias on telemetry. Intermittent sinus tachycardia noted however. at bedside. Discussed patient's care plans and precautions. All questions answered to their satisfaction. Review of Systems Review of Systems: All systems reviewed & are unremarkable except as noted in HPI and below Constitutional: Constitutional: Denies fatigue, Denies headache(s) and Denies weakness Eyes: Eyes: Reports blurry vision ENT: Reports Normal hearing present, Denies headache(s) and Denies neck pain Cardiovascular: Cardiovascular: Reports chest pain and Reports dyspnea Respiratory: Respiratory: Reports dyspnea Gastrointestinal: Gastrointestinal: Denies abdominal pain Genitourinary: Genitourinary: Denies dysuria Musculoskeletal: Musculoskeletal: Denies neck pain Integumentary/Breasts: Skin/Breast: Denies dry skin Neurologic: Reports Normal hearing present, Denies headache(s) and Denies weakness Psychiatric: Psychiatric: Reports anxiety Endocrine: Endocrine: Denies fatigue Hematologic/Lymphatic: Hematologic/Lymphatic: Denies easy bleeding Allergic/Immunologic: Allergic/Immunologic: Denies GI upset with certain foods Exam Narrative: Exam Narrative: Awake alert oriented. Appears in distress and uncomfortable. Appears stated age Const: General: in distress and uncomfortable HENMT: General nose exam: Normal nares present Eyes: Sclera: sclerae normal Neck: Neck: supple and no JVD Chest: Other: No reproducible chest wall pain to palpation Resp: Auscultation: clear to auscultation bilaterally Cardio: Rate: regular rate Rhythm: regular rhythm GI
[2020-08-22] MEDS: PERFLUTREN LIPID MICROSPHERES 1.5 ML VIAL DILUTED TO 10 ML TOTAL VOLUME IV PUSH (15:20)
[2020-08-22] MEDS: METOPROLOL TARTRATE 25 MG TABLET PO ×2 (15:25→20:39)
[2020-08-23] VITALS: PULSE 64; PULSE 67; RESP 18
[2020-08-23 04:00] VITALS: PULSE 65
[2020-08-23 04:57] LABS: Hematocrit 43.4 % (42.0-52.0); Hemoglobin 14.7 g/dL (14.0-18.0); Mean Corpuscular HGB Conc 33.9 g/dl (32-36); Mean Corpuscular Hemoglobin 31.3 pg (26-34); Mean Corpuscular Volume 92.5 fl (80-100); Mean Platelet Volume 10.4 fl (7.4-10.4); Platelet Count Result 211 k/mm3 (150-375); Red Blood Count 4.69 M/mm3 (4.6-6.20); Red Cell Distribution Width 12.4 % (11.5-14.5); White Blood Count 8.9 K/mm3 (4.5-10.0)
[2020-08-23 05:14] LABS: Anion Gap 5 mmol/L (8-16); Blood Urea Nitrogen 20 mg/dL (9-20); Carbon Dioxide 30 mmol/L (22-30); Chloride 99 mmol/L (98-107); Estimated CRCL calculation 62 ml/min; Estimated Glomerular Filt Rate 44; Glucose 99 mg/dL (75-110); Sodium 134 mmol/L (137-145)
[2020-08-23] MEDS: FLUTICASONE PROPIONATE 0.05% NA SPR 16 GM BTL (*BKC) 1 SPRAY NASAL (07:50)
[2020-08-23] MEDS: ASPIRIN 81 MG ENTERIC TABLET PO (07:50)
[2020-08-23 07:51] VITALS: PULSE 79
[2020-08-23] MEDS: TICAGRELOR 90 MG TABLET PO (07:51)
[2020-08-23] MEDS: LORATADINE 10 MG TABLET PO (07:51)
[2020-08-23] MEDS: lisinopriL 20 MG TABLET 40 MG PO (07:51)
[2020-08-23] MEDS: METOPROLOL TARTRATE 25 MG TABLET PO (07:51)
[2020-08-23] MEDS: amLODIPine BESYLATE 5 MG TABLET 10 MG PO (07:51)
[2020-08-23] MEDS: INDAPAMIDE 1.25 MG TABLET PO (07:52)
[2020-08-23 07:58] VITALS: BP 112/71; PULSE 85; RESP 11; TEMP 36.4; O2SAT 96
[2020-08-23 07:59] VITALS: PULSE 81; RESP 11; O2SAT 96
[2020-08-23 08:00] VITALS: PULSE 74
--- NOTE | 2020-08-23 09:46 | PM.DS ---
DS: Admitting Diagnosis Admitting Diagnosis Admitting Diagnosis: Lateral ST-elevation ID DS: Discharge Diagnosis Discharge Diagnosis (1) STEMI (ST elevation myocardial infarction): Code(s): I21.3 - ST elevation (STEMI) myocardial infarction of unspecified site Status: Acute DS: Summary Hospital Course Hospital Course: Hospital course: 64-year-old male with hypertension, dyslipidemia, obesity, history of tobacco abuse. Patient presented to [facility] with complaints of chest pain; was found to have ST elevation in the lateral leads. He underwent primary PCI-Xience everolimus eluting 3 x 18 mid LCX; 2x12 resolute mahin drug-eluting stent to mid OM 1. LVEF was normal on echocardiogram. Post PCI hospital course segment uneventful. On the day of discharge, patient was chest pain-free and was eager to go home. Time Spent with Patient Time attestation: Date of admission: 08/21/2020 Date of discharge: 08/23/2020 Total time spent providing and/or coordinating discharge services:42 minutes Exam Narrative: Exam Narrative: PHYSICAL EXAMINATION: GENERAL: Alert, oriented, no acute distress MENTAL STATUS: affect appropriate to mood EYES: Extraocular movements intact, no pallor EARS: External ears appear normal, decreased hearing NOSE: Normal and patent, no discharge MOUTH: Mucous membranes moist, tongue normal NECK: Supple, no JVD CHEST: Good respiratory effort, clear to auscultation HEART: Normal rate, regular rhythm, normal S1 and S2, no audible murmurs ABDOMEN: Soft, nontender NEUROLOGICAL: Alert, oriented, normal speech, no gross motor deficits MUSCULOSKELETAL: No major deformity, no amputation EXTREMITIES: No pedal edema, right groin access site unremarkable SKIN: no rash on the exposed area, no cyanosis PSYCHIATRIC: Normal mood, appropriate affect DS: Data Data Completed and Pending Labs on day of discharge: Labs from last 24 hours 08/23/20 08/23/20 04:38 04:38 WBC 8.9 RBC 4.69 Hgb 14.7 Hct 43.4 MCV 92.5 MCH 31.3 MCHC 33.9 RDW 12.4 Plt Count 211 MPV 10.4 Sodium 134 L Potassium 4.0 Chloride 99 Carbon Dioxide 30 Anion Gap 5 L BUN 20 Creatinine 1.60 H Estim Creat Clear Calc 62 Estimated GFR 44 L Glucose 99 Calcium 9.0 Discharge Plan Discharge Attending physician on discharge: Galo Patrick Consulting providers: Harmeet Zhao Discharging Clinician: Galo Patrick Patient Disposition: Home, Self-Care Activity: other - see discharge instructions Diet: heart healthy Discharge Instructions: No lifting, pushing or pulling more than 10 pounds for 1 week. No strenuous exercise or activity (including sexual activity) for 1 week. May shower but NO tub baths/hot tubs/swimming pools for 1 week (they are too hot). DO NOT STOP YOUR MEDICATIONS! ONLY YOUR DISTRIBUTION TECHNICIAN CAN STOP Keep your stent card in your wallet at all times Read food labels for high levels of sodium, avoid fried foods, eat more fruits and vegetables, do not add additional salt to meals. If you miss 1 dose of Brilinta take a tablet at the next time due. If you miss 2 doses take a tablet when you remember and resume at the next time due. Stay hydrated Patient Instructions: Chest Pain (DC), Acute Coronary Syndrome (DC) Stand Alone Forms: General Discharge Information Follow-up/Referrals: Mayank Lomeli MD [Physician] - (Follow-up in 2-4 weeks. Please call our office for appointment, if you do not hear from our staff in next 2-3 days.) Discharge Medications: New atorvastatin 40 mg Tablet 80 mg PO DAILY 30 Days Qty: 60 RF: 0 aspirin 81 mg Tablet,Delayed Release (Dr/Ec) 81 mg PO QAM 30 Days Qty: 30 RF: 0 metoprolol tartrate 25 mg Tablet 25 mg PO Q12HR 30 Days Qty: 60 RF: 0 Brilinta 90 mg Tablet 90 mg PO Q12HR 30 Days Qty: 60 RF: 0 Continued fluticasone propionate [Flonase Allergy Relief] 50 mcg/actuation Lomita,Alyx
--- NOTE | 2020-08-23 11:57 | PCCPR ---
called to discuss cardiac rehab with pt; interested
== END 2020-08-23 10:14 | disposition home or self-care (01) | DRG 247 ==
LOC: ANHCATHLAB 09:49 → ANHED 10:43 → ANHICU 16:24 → ANHED 08-25 16:08 → ANHICU 08-25 16:09
PROVIDERS: Internal Medicine Cardiovascular Disease; Admitting Provider Internal Medicine Cardiovascular Disease; Emergency Provider General Practice; PCP Family Medicine; Visit Provider Internal Medicine Cardiovascular Disease
PROC: 4A023N7 Measurement of Cardiac Sampling and Pressure, Left Heart, Percutaneous Approach (ICD-10-PCS; CPT 93452; principal; 2020-08-21 09:10)
PROC: 027135Z Dilation of Coronary Artery, Two Arteries with Two Drug-eluting Intraluminal Devices, Percutaneous Approach (ICD-10-PCS; 2020-08-21 09:10)
PROC: 027135Z Dilation of Coronary Artery, Two Arteries with Two Drug-eluting Intraluminal Devices, Percutaneous Approach (ICD-10-PCS; 2020-08-21 09:10)
PROC: 027135Z Dilation of Coronary Artery, Two Arteries with Two Drug-eluting Intraluminal Devices, Percutaneous Approach (ICD-10-PCS; 2020-08-21 09:10)
DX: I21.3 ST elevation (STEMI) myocardial infarction of unspecified site (principal); I12.9 Hypertensive chronic kidney disease with stage 1 through stage 4 chronic kidney disease, or unspecified chronic kidney disease; N18.30 Chronic kidney disease, stage 3 unspecified; E78.5 Hyperlipidemia, unspecified; M19.011 Primary osteoarthritis, right shoulder; E66.9 Obesity, unspecified; Z68.39 Body mass index [BMI] 39.0-39.9, adult; Z87.891 Personal history of nicotine dependence
CPT/HCPCS: 36415; 71045; 80048; 80061; 84484; 85025; 85027; 85610; 85730; 86850; 86900; 86901; 93005; 93458; 96374; 99285; A9270; C1725; C1760; C1769; C1874; C1887; C1894; C8929; C9113; C9601; C9606; G0269; J0583; J1644; J2250; J2270; J2405; J3010; J7030; J7040; Q9957

== ENCOUNTER 2020-08-31 15:04 | Outpatient (CLI) | payer BC, SELFPAY | END 2020-08-31 15:05 | disposition home or self-care (01) | LOC: ANHCOVIDVC 15:04 | PROVIDERS: PCP Family Medicine | DX: Z23 Encounter for immunization (principal) | CPT/HCPCS: 0002A; 91300 ==

== ENCOUNTER 2020-09-01 10:04 | Outpatient (CLI) | payer BC, SELFPAY ==
[2020-09-01 10:32] LABS: Anion Gap 9 mmol/L (8-16); Blood Urea Nitrogen 24 mg/dL (9-20); Calcium 10.1 mg/dL (8.4-10.2); Carbon Dioxide 27 mmol/L (22-30); Chloride 99 mmol/L (98-107); Estimated Glomerular Filt Rate 41; Glucose 106 mg/dL (75-110); Potassium 4.7 mmol/L (3.4-5.0); Sodium 135 mmol/L (137-145)
== END 2020-09-01 10:05 | disposition home or self-care (01) ==
PROVIDERS: PCP Family Medicine; Visit Provider Nurse Practitioner Family
DX: I21.3 ST elevation (STEMI) myocardial infarction of unspecified site (principal); N18.30 Chronic kidney disease, stage 3 unspecified
CPT/HCPCS: 36415; 80048

== ENCOUNTER 2020-10-01 06:55 | Outpatient (CLI) | payer BC, SELFPAY ==
[2020-10-01 07:33] LABS: Albumin Level 4.7 g/dL (3.5-5.1); Anion Gap 13 mmol/L (8-16); Blood Urea Nitrogen 40 mg/dL (9-20); Calcium 9.8 mg/dL (8.4-10.2); Carbon Dioxide 21 mmol/L (22-30); Chloride 104 mmol/L (98-107); Estimated Glomerular Filt Rate 30; Glucose 106 mg/dL (75-110); Phosphorus 3.2 mg/dL (2.5-4.5); Potassium 4.8 mmol/L (3.4-5.0); Sodium 138 mmol/L (137-145)
[2020-10-01 07:36] LABS: Creatinine Urine 212.9 mg/dL; Total Protein Urine Random 8 mg/dL; Ur Ttl Prot Creatinine Ratio 0.04 mg/mg (0-0.20)
== END 2020-10-01 06:56 | disposition home or self-care (01) ==
PROVIDERS: PCP Family Medicine; Referring Provider Family Medicine; Visit Provider Internal Medicine Nephrology
DX: N18.31 Chronic kidney disease, stage 3a (principal)
CPT/HCPCS: 36415; 80069; 82570; 84156

== ENCOUNTER 2020-11-26 07:02 | Outpatient (CLI) | payer BC, SELFPAY ==
[2020-11-26 08:46] LABS: Add Urine Microscopic? YES; Appearance Urine Clear (Clear); Bilirubin Urine Negative (Negative); Blood Urine 1+ (Negative); Color Urine Yellow (Yellow); Glucose Urine UA Negative (Negative); Ketones Urine Negative (Negative); Leukocyte Esterase Ur Negative LEU/UL (NEGATIVE); Mucus Urine Rare /lpf; Nitrate Urine Negative (Negative); Protein Urine Negative (Negative); RBC Urine 0-2 /hpf (0-2); Specific Grav Ur 1.018 (1.001-1.035); Urobilinogen Urine Negative mg/dL (<2.0); WBC Urine 0-3 /hpf (0-3)
[2020-11-26 08:52] LABS: Albumin Level 4.5 g/dL (3.5-5.1); Anion Gap 12 mmol/L (8-16); Blood Urea Nitrogen 31 mg/dL (9-20); Calcium 9.6 mg/dL (8.4-10.2); Carbon Dioxide 22 mmol/L (22-30); Chloride 101 mmol/L (98-107); Estimated Glomerular Filt Rate 47; Glucose 99 mg/dL (65-110); Phosphorus 3.4 mg/dL (2.5-4.5); Potassium 4.8 mmol/L (3.4-5.0); Sodium 135 mmol/L (137-145)
[2020-11-26 09:48] LABS: Creatinine Urine 120.9 mg/dL
[2020-11-26 09:59] LABS: Sodium Urine Random 68 meq/L
[2020-11-26 11:22] LABS: Eosinophil Urine None Seen % (None Seen)
== END 2020-11-26 07:03 | disposition home or self-care (01) ==
PROVIDERS: PCP Family Medicine; Visit Provider Internal Medicine Nephrology
DX: N18.31 Chronic kidney disease, stage 3a (principal)
CPT/HCPCS: 36415; 80069; 81001; 82570; 84300; 85999

== ENCOUNTER 2021-02-04 06:56 | Outpatient (CLI) | payer BC, SELFPAY ==
[2021-02-04 07:38] LABS: Hematocrit 43.2 % (42.0-52.0); Hemoglobin 14.1 g/dL (14.0-18.0); Mean Corpuscular HGB Conc 32.6 g/dl (32-36); Mean Corpuscular Hemoglobin 31.4 pg (26-34); Mean Corpuscular Volume 96.2 fl (80-100); Mean Platelet Volume 10.4 fl (7.4-10.4); Platelet Count Result 266 k/mm3 (150-375); Red Blood Count 4.49 M/mm3 (4.6-6.20); Red Cell Distribution Width 12.5 % (11.5-14.5); White Blood Count 6.2 K/mm3 (4.5-10.0)
[2021-02-04 07:48] LABS: Creatinine Urine 136.3 mg/dL
[2021-02-04 07:57] LABS: Albumin Level 4.8 g/dL (3.5-5.1); Anion Gap 10 mmol/L (8-16); Blood Urea Nitrogen 32 mg/dL (9-20); Calcium 9.4 mg/dL (8.4-10.2); Carbon Dioxide 28 mmol/L (22-30); Chloride 101 mmol/L (98-107); Estimated Glomerular Filt Rate 47; Glucose 102 mg/dL (65-110); Phosphorus 3.5 mg/dL (2.5-4.5); Potassium 4.5 mmol/L (3.4-5.0); Sodium 139 mmol/L (137-145)
[2021-02-04 08:06] LABS: Parathyroid Intact 36.5 pg/mL (7.5-53.5)
[2021-02-04 08:12] LABS: Total Protein Urine Random < 5 mg/dL; Ur Ttl Prot Creatinine Ratio < 0.04 mg/mg (0-0.20)
== END 2021-02-04 06:57 | disposition home or self-care (01) ==
PROVIDERS: PCP Family Medicine; Visit Provider Internal Medicine Nephrology
DX: N18.31 Chronic kidney disease, stage 3a (principal)
CPT/HCPCS: 36415; 80069; 82570; 83970; 84156; 85027

== ENCOUNTER 2021-03-01 06:49 | Outpatient (CLI) | payer BC, SELFPAY ==
[2021-03-01 07:50] LABS: Cholesterol 148 mg/dL (0-200); HDL Direct 39 mg/dL; Triglycerides 161 mg/dL (<150)
[2021-03-01 08:01] LABS: LDL Cholesterol Direct 77 mg/dL
== END 2021-03-01 06:50 | disposition home or self-care (01) ==
LOC: ANHLAB 06:51
PROVIDERS: PCP Family Medicine; Visit Provider Internal Medicine Cardiovascular Disease
DX: E78.2 Mixed hyperlipidemia (principal)
CPT/HCPCS: 36415; 80061

== ENCOUNTER 2021-04-15 06:47 | Outpatient (CLI) | payer BC, SELFPAY ==
[2021-04-15 07:14] LABS: Anion Gap 7 mmol/L (8-16); Blood Urea Nitrogen 20 mg/dL (9-20); Calcium 9.2 mg/dL (8.4-10.2); Carbon Dioxide 29 mmol/L (22-30); Chloride 99 mmol/L (98-107); Estimated Glomerular Filt Rate 51; Glucose 110 mg/dL (65-110); Potassium 4.5 mmol/L (3.4-5.0); Sodium 135 mmol/L (137-145)
== END 2021-04-15 06:48 | disposition home or self-care (01) ==
LOC: ANHLAB 06:49
PROVIDERS: PCP Family Medicine; Visit Provider Nurse Practitioner Family
DX: N17.9 Acute kidney failure, unspecified (principal)
CPT/HCPCS: 36415; 80048

== ENCOUNTER 2021-08-07 09:51 | Outpatient (CLI) | payer BC, SELFPAY ==
[2021-08-07 10:26] LABS: Albumin Level 4.8 g/dL (3.5-5.1); Anion Gap 7 mmol/L (8-16); Blood Urea Nitrogen 20 mg/dL (9-20); Carbon Dioxide 28 mmol/L (22-30); Chloride 100 mmol/L (98-107); Estimated Glomerular Filt Rate > 60; Glucose 97 mg/dL (65-110); Phosphorus 3.5 mg/dL (2.5-4.5); Potassium 4.7 mmol/L (3.4-5.0); Sodium 135 mmol/L (137-145)
[2021-08-07 11:23] LABS: Creatinine Urine 79.3 mg/dL
[2021-08-07 12:05] LABS: Total Protein Urine Random < 5 mg/dL; Ur Ttl Prot Creatinine Ratio < 0.06 mg/mg (0-0.20)
== END 2021-08-07 09:52 | disposition home or self-care (01) ==
PROVIDERS: PCP Family Medicine; Visit Provider Internal Medicine Nephrology
DX: N18.1 Chronic kidney disease, stage 1 (principal)
CPT/HCPCS: 36415; 80069; 82570; 84156

== ENCOUNTER 2021-10-03 08:40 | Outpatient (CLI) | payer MEDICARE, SELFPAY ==
--- NOTE | ~2021-10-03 | XR_ITS ---
XR finger 2nd LT min 2V DATE: 10/03/2021 09:00 INDICATION: Injury 2 months ago. Pain. TECHNIQUE: 4 views COMPARISON: None FINDINGS: There is osteoarthritic change including moderate spurring at the distal interphalangeal josé luis int. No fracture or dislocation, periosteal reaction or bone destruction, subcutaneous emphysema or radiop aque foreign body is noted. IMPRESSION: No fracture or dislocation Distal interphalangeal joint osteoarthritis Reviewed, dictated and finalized at location A.
== END 2021-10-03 08:41 | disposition home or self-care (01) ==
LOC: ANHIMG 08:45
PROVIDERS: PCP Family Medicine; Visit Provider Nurse Practitioner Family
DX: S69.90XA Unspecified injury of unspecified wrist, hand and finger(s), initial encounter (principal); X58.XXXA Exposure to other specified factors, initial encounter; M19.032 Primary osteoarthritis, left wrist
CPT/HCPCS: 73140

== ENCOUNTER 2021-11-07 09:00 | Outpatient (RCR) | payer MEDICARE, SELFPAY ==
--- NOTE | 2021-10-23 11:02 | OTOPEVAL ---
OCCUPATIONAL THERAPY EVALUATION REPORT 10/23/21 Pedro is a 66 year-old, right handed male who sustained an injury to his left index finger 2+ months ago and did not seek treatment until recently. 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 Skilled OT indicated for HEP instruction and progression as well as use of thermal modalities for stiffness and pain. Issued HEP today and plan to reassess patient's ROM and progress next week. Will send a formal reassessment update before he follows up with on 11/03/21. Thank you for referring Pedro Joshua to [facility].? The patient is scheduled to be seen for therapy?1x/week for 2 weeks. Please review, sign, date and return this plan of care RAY. I agree with and certify that the following plan of care is medically necessary. Referring Physician Date Referring Provider: Donny López MD *OT Outpatient Evaluation Start: 10/23/21 10:08 Therapy Assessment Status Assessment Status Assessment Status Evaluation Outpatient Past Medical History Neurological History Hx Neurological Disorders No Significant History Cardiovascular History Hx Hypercholesterolemia Yes Hx Hypertension Yes Respiratory History Hx Bronchitis Yes Gastrointestinal History Hx Appendectomy Yes Genitourinary History Hx Renal Disease Yes Musculoskeletal History Hx Musculoskeletal Disorders No Significant History Hematological History Hx Hematological Disorders No Significant History Endocrine History Hx Endocrine Disorders No Significant History HEENT History Hx Sinus Problems Yes Integumentary History Hx Skin Disorders No Significant History Reproductive History Hx Reproductive Disorders No Significant History Psychosocial History Hx Anxiety Yes Pain History History of Any Previous or Ongoing No Significant History Instance of Pain Anesthesia History Hx Anesthesia Reactions No Significant History Evaluation Information Problem Diagnosis Pain, stiffness left index finger, DIP joint Onset July 2021 Subjective Information Patient reports feeling a Query Text:As Reported By Patient/ popping sensation when he was Family trying to pull some boots on back in July. He states the finger swelled and was bruised on the volar side. He reports residual stiffness in the finger, mostly at the DIP joint, which restricts his ability to use that finger for gripping tasks. He states he has been avoiding using that finger during ADLs and
--- NOTE | 2021-10-31 09:48 | OTOPEVAL ---
OCCUPATIONAL THERAPY RE-EVALUATION REPORT AND POC UPDATE 10/31/21 Pedro is a 66 year-old, right handed male who sustained an injury to his left index finger 2+ months ago and did not seek treatment until recently. He was initially evaluated by OT 1 week ago and was issued ROM HEP. Today he was re-evaluated and improvements have been noted at each joint. Index MCP and PIP flexion have returned to normal limits at 90*. DIP flexion improved from 20* to 60*. He is now able to make a near normal composite fist and a hook fist is only measuring 1.5-2 cm gap, compared to 3 cm gap last week. Overall, his rehab potential appears excellent as his functional flexibility responds well to paraffin, manual therapy, and exercise. Will recommend he continue to follow up with therapy 1x/week for another 2-3 weeks to progress HEP as tolerated. Thank you for referring Pedro Joshua to [facility].? The patient is scheduled to be seen for therapy? 1x/week for 2-3 weeks. Please review, sign, date and return this plan of care RAY. I agree with and certify that the following plan of care is medically necessary. Referring Physician Date Referring Provider: Donny López MD Re-Evaluation Information Diagnosis Pain, stiffness left index finger, DIP joint Onset July 2021 Subjective Information Patient has been working on Query Text:As Reported By Patient/ his HEP x1 week and has been Family noticing some progress with functional ROM and use. He has been using that finger for more tasks, such as opening bottles. At the start of care he was still avoiding using the left index finger and would leave it sticking out when gripping items and now he states he incorporates that finger with all tasks. His biggest complaint is that the finger still feels stiff. Reminded him that we have only been working for a week and have noticed great progress with ROM and strength. Pain Assessment Timing of Pain Assessment Timing of Pain Assessment Re-assessment Pain Scale Pain Scale Used Numeric (1 - 10) Self Report Pain Assessment Left Finger, Index Reported Pain Level 0 Pain Score Pain Score 0: Self Report Additional Pain Score Comments Reports no pain at rest or with active ROM. States he has some pain with gripping/pinching his putty. Upper Extremity Range of Motion Finger Range of Motion Left Index Finger MCP Joint Flexion - Active 90 Index Finger PIP Joint Flexion - Active 90 Index Finger PIP Joint Extension -
--- NOTE | 2021-11-07 09:36 | PCOTNOTE ---
OCCUPATIONAL THERAPY D/C NOTIFICATION 11/07/21 Patient:Pedro Joshua Date of :1955 Pedro presents today for OT session stating that he is ready to be discharged. His HEP was reviewed and he was upgraded to the next resistive theraputty. 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 Please refer to most recent progress note, dated 10/31/21, for most recent ROM measurements. The goals have been met. Thank you for referring this patient to [facility]. Please review, sign, date and return this discharge summary RAY. I have been updated about the patient's current status and I agree with discharge from the above service at this time. Referring Physician Date Referring Provider: Donny López MD
== END 2021-11-08 10:15 | disposition home or self-care (01) ==
LOC: ANHOT 09:00
PROVIDERS: PCP Family Medicine; Visit Provider Plastic Surgery
DX: S69.91XA Unspecified injury of right wrist, hand and finger(s), initial encounter (principal); M79.641 Pain in right hand; M25.641 Stiffness of right hand, not elsewhere classified; M62.81 Muscle weakness (generalized)
CPT/HCPCS: 97018; 97110; 97140; 97165

== ENCOUNTER 2022-02-14 06:58 | Outpatient (CLI) | payer MEDICARE, SELFPAY ==
[2022-02-14 07:34] LABS: Hematocrit 44.8 % (42.0-52.0); Hemoglobin 14.9 g/dL (14.0-18.0); Mean Corpuscular HGB Conc 33.3 g/dl (32-36); Mean Corpuscular Hemoglobin 32.2 pg (26-34); Mean Corpuscular Volume 96.8 fl (80-100); Mean Platelet Volume 9.7 fl (7.4-10.4); Platelet Count Result 244 k/mm3 (150-375); Red Blood Count 4.63 M/mm3 (4.6-6.20); Red Cell Distribution Width 12.6 % (11.5-14.5); White Blood Count 5.2 K/mm3 (4.5-10.0)
[2022-02-14 07:49] LABS: Albumin Level 4.5 g/dL (3.5-5.1); Anion Gap 12 mmol/L (8-16); Blood Urea Nitrogen 21 mg/dL (9-20); Carbon Dioxide 26 mmol/L (22-30); Chloride 101 mmol/L (98-107); Estimated Glomerular Filt Rate > 60; Glucose 108 mg/dL (65-110); Phosphorus 2.8 mg/dL (2.5-4.5); Potassium 3.9 mmol/L (3.4-5.0); Sodium 139 mmol/L (137-145)
[2022-02-14 07:51] LABS: Alanine Aminotransferase 32 U/L (6-50); Albumin Level 4.5 g/dL (3.5-5.1); Alkaline Phosphatase 74 U/L (38-126); Anion Gap 8 mmol/L (8-16); Aspartate Amino Transferase 46 U/L (17-59); Bilirubin,Total 0.9 mg/dL (0.2-1.3); Blood Urea Nitrogen 22 mg/dL (9-20); Carbon Dioxide 27 mmol/L (22-30); Chloride 103 mmol/L (98-107); Cholesterol 111 mg/dL (0-200); Estimated Glomerular Filt Rate > 60; Glucose 107 mg/dL (65-110); HDL Direct 39 mg/dL; Potassium 4.1 mmol/L (3.4-5.0); Sodium 138 mmol/L (137-145); Triglycerides 64 mg/dL (<150)
[2022-02-14 07:56] LABS: Total Protein Urine Random < 5 mg/dL; Ur Ttl Prot Creatinine Ratio < 0.04 mg/mg (0-0.20)
[2022-02-14 08:02] LABS: LDL Cholesterol Direct 53 mg/dL
[2022-02-14 08:03] LABS: Parathyroid Intact 50.7 pg/mL (7.5-53.5)
[2022-02-14 08:20] LABS: Prostate Specific Antigen 0.6 ng/mL (< OR = 4.0)
== END 2022-02-14 06:59 | disposition home or self-care (01) ==
PROVIDERS: PCP Family Medicine; Referring Provider Internal Medicine Nephrology; Visit Provider Nurse Practitioner Family
DX: I10 Essential (primary) hypertension (principal); E78.2 Mixed hyperlipidemia; N52.9 Male erectile dysfunction, unspecified; Z12.5 Encounter for screening for malignant neoplasm of prostate; N18.32 Chronic kidney disease, stage 3b
CPT/HCPCS: 36415; 80053; 80061; 80069; 82570; 83970; 84153; 84156; 84443; 85027; G0103

== ENCOUNTER 2023-01-15 09:30 | Outpatient (RCR) | payer MEDICARE, SELFPAY ==
[2022-11-27 10:54] VITALS: BMI 35.6
[2022-11-27 14:15] VITALS: BMI 35.6
[2023-01-15 09:45] VITALS: BMI 34.4; BMI 35.6
== END 2023-02-11 11:13 | disposition home or self-care (01) ==
LOC: ANHDMC 09:30
PROVIDERS: PCP Family Medicine; Visit Provider Family Medicine
DX: R63.5 Abnormal weight gain (principal); N18.31 Chronic kidney disease, stage 3a; I21.3 ST elevation (STEMI) myocardial infarction of unspecified site; Z71.3 Dietary counseling and surveillance
CPT/HCPCS: 97802; 97803

== ENCOUNTER 2023-02-25 07:18 | Outpatient (CLI) | payer MEDICARE, SELFPAY ==
[2023-02-25 08:07] LABS: Anion Gap 4 mmol/L (8-16); Blood Urea Nitrogen 18 mg/dL (9-20); Calcium 9.5 mg/dL (8.4-10.2); Carbon Dioxide 32 mmol/L (22-30); Chloride 100 mmol/L (98-107); Estimated Glomerular Filt Rate > 60; Glucose 125 mg/dL (65-110); Potassium 3.9 mmol/L (3.4-5.0); Sodium 136 mmol/L (137-145)
== END 2023-02-25 07:19 | disposition home or self-care (01) ==
PROVIDERS: PCP Family Medicine; Visit Provider Internal Medicine Cardiovascular Disease
DX: N18.31 Chronic kidney disease, stage 3a (principal)
CPT/HCPCS: 36415; 80048

== ENCOUNTER 2023-03-04 01:14 | Day surgery (SDC) | payer MEDICARE, SELFPAY ==
[2023-03-01 15:00] VITALS: BMI 33.1
[2023-03-04] VITALS (9 sets, daily range): BP systolic 137–189; BP diastolic 91–102; PULSE 63–104; RESP 12–18; TEMP 36.4–36.5; O2SAT 95–99; BMI 34.0
[2023-03-04 07:30] LABS: Basophils Percent Auto 0.6 % (0.2-1.2); Eosinophils Absolute Auto 0.3 K/mm3 (0-0.3); Eosinophils Percent Auto 3.9 % (0-4.4); Hematocrit 50.1 % (42.0-52.0); Hemoglobin 16.4 g/dL (14.0-18.0); Immature Granulocyte Absolute 0.02 K/mm3 (0.00-0.031); Immature Granulocyte Percent A 0.3 % (0-0.5); Lymphocytes Absolute Auto 1.28 K/mm3 (0.9-3.2); Lymphocytes Percent Auto 18.3 % (18.3-44.2); Mean Corpuscular HGB Conc 32.7 g/dl (32-36); Mean Corpuscular Hemoglobin 31.2 pg (26-34); Mean Corpuscular Volume 95.4 fl (80-100); Mean Platelet Volume 9.6 fl (7.4-10.4); Monocytes Absolute Auto 0.7 K/mm3 (0.1-0.6); Monocytes Percent Auto 9.7 % (2.6-8.5); Neutrophils Absolute Auto 4.7 K/mm3 (1.3-6.7); Neutrophils Percent Auto 67.2 % (45.5-73.1); Platelet Count Result 250 k/mm3 (150-375); Red Blood Count 5.25 M/mm3 (4.6-6.20); Red Cell Distribution Width 12.6 % (11.5-14.5)
[2023-03-04 07:39] LABS: Anion Gap 8 mmol/L (8-16); Blood Urea Nitrogen 17 mg/dL (9-20); Calcium 9.5 mg/dL (8.4-10.2); Carbon Dioxide 27 mmol/L (22-30); Chloride 102 mmol/L (98-107); Estimated CRCL calculation 95 ml/min; Estimated Glomerular Filt Rate > 60; Glucose 107 mg/dL (65-110); Potassium 3.8 mmol/L (3.4-5.0); Sodium 137 mmol/L (137-145)
--- NOTE | 2023-03-04 08:37 | WPDMODSED ---
Moderate Sedation Note-Pt Data Patient Data Diagnosis: Coronary artery disease with previous [place]/PCI to circumflex nonsustained ventricular tachycardia Present Complaint: no complaints Procedure to be performed/Plan: follow-up coronary angiography Allergies Allergy/AdvReac Type Severity Reaction Status Date / Time tramadol AdvReac Severe tongue Verified 03/04/23 07:12 swelling lisinopril AdvReac Intermediate Swelling Verified 03/04/23 07:12 of Lip/Tongue/Throat Home Medications Medication Instructions Recorded Confirmed Type fluticasone propionate 50 1 spray intranasal DAILY 06/09/19 03/01/23 History mcg/actuation nasal spray,suspension (Flonase Allergy Relief) aspirin 81 mg tablet,delayed 81 mg PO QAM 30 days #30 tabs 08/23/20 03/01/23 Rx release loratadine 10 mg capsule 10 mg PO DAILY 01/19/21 03/01/23 History albuterol sulfate 1.25 mg/3 mL 1.25 mg (3 mL) inhalation Q4-6H 05/22/21 03/01/23 Rx solution for nebulization PRN shortness of breath or wheezing #75 mL sildenafil 100 mg tablet 100 mg PO DAILY PRN sexual activity 11/19/22 03/01/23 History amlodipine 5 mg tablet 5 mg PO DAILY #90 tabs 12/25/22 03/01/23 Rx atorvastatin 80 mg tablet 80 mg PO QHS #90 tabs 12/25/22 03/01/23 Rx metoprolol succinate 25 mg 25 mg PO DAILY 03/01/23 03/01/23 History tablet,extended release 24 hr Current Medications: Active Medications Sodium Chloride (Normal Saline Iv) 500 mls @ 100 mls/hr IV CONT .Q5H KEN Sedation/Anesthesia: No previous sedation/anesthesia problems (including family history). [facility] Past Medical History Medical History (Updated 01/14/23 @ 10:40 by Shabbir Licona MD) Arthritis of shoulder region, right, degenerative BMI 32.0-32.9,adult BMI 34.0-34.9,adult BMI 36.0-36.9,adult BMI over 35 Capsulitis of right shoulder Chronic kidney disease, stage 3a Deviated septum Essential (primary) hypertension Mixed hyperlipidemia Polyarticular arthritis Right rotator cuff tendinitis Right shoulder strain Seasonal allergies Stage 3 acute kidney injury Trigger point of right shoulder region Vision abnormalities Visit for [facility] check Surgical History Surgical History History of appendectomy Family History Family History Mother Hypertension Alzheimer disease Father Family history of coronary artery disease Acute myocardial infarction Sibling Family history of coronary artery disease Cerebrovascular accident Sibling Family history of coronary artery disease Heart disease Other Family history of malignant neoplasm Social History Social History Smoking packs per day: 1 Smoking cigarettes per day: 20.0 Years smoked: 40 Smoking pack-years: 40.00 Smoking status: Former smoker Tobacco type: cigarettes Second hand tobacco smoke exposure: No Smoking end date: 04/29/09 Alcohol intake: current Alcohol use details: couple times a year Substance use: never Substance use type: does not use Other substance usage details: CBD gummies Lack of Transportation: No Lack of Food: Never True Current Housing: I Have Housing Concerned About Future Housing: No Difficulty Paying Gas/Electric Bills: No Difficulty Paying for Meds: No Currently Unemployed: No Education: High School Diploma/GED Difficulty w/ Childcare or Family Care: No Living arrangements: with family Occupation/Education: retired Additional occupation/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: [employer]. Gender identity (if verbalized by the patient): Male Spiritual care concerns: No Mod Sed Physical Exam Physical Exam Pre Procedural Exam: Normal: Neck, Throat, Airway, Lungs, Heart Rate, Heart Rhythm, Neuro Exam and Extremities and Variation: Kristy
--- NOTE | 2023-03-04 09:08 | WPDCARDPROC ---
Cardiac Cath Procedure Note Date of procedure:: 03/04/23 Performing physician:: Isaac Chao MD Indication:: coronary artery disease with previous [place] and emergency PCI of circumflex in 2020 nonsustained ventricular tachycardia Brief clinical history:: this is a 67-year-old man known to have coronary disease as described above. He recently had a 30 day event monitor performed to rule out occult atrial fibrillation. There was no evidence of atrial fib but he did have an episode of nonsustained ventricular tachycardia he is not having any anginal symptoms Procedure Procedure performed:: left ventriculogram coronary angiogram Angio-Seal to right femoral artery Sedation/Medication given:: fentanyl 50 mg Versed 2 mg case start time 8:48 a.m. case end time 9:04 a.m. sedation provided by Jesus Alba RN, trained observer Access site:: right femoral artery Estimated blood loss:: 20 cc Procedure note:: patient was brought to the cardiac catheterization lab in the postabsorptive state where the right femoral triangle was prepared and draped in the normal fashion. Anesthesia was provided with 1% lidocaine infiltrated locally. Using the modified Seldinger technique a 5 Peruvian sheath was placed into the right common femoral artery after this left heart catheterization was carried out a 5 Peruvian angled pigtail catheter was used to measure left-sided hemodynamics and to inject LV g in the 30 degree PUGH projection. Following this I used a standard 5 Peruvian JR4 catheter to engage inject the right coronary artery and then a standard 5 Peruvian FL4 catheter to engage and inject the left coronary artery. The cineangiograms were reviewed and the case was terminated. An angiogram was performed to the femoral artery through the sheath after which a 6 Peruvian Angio-Seal to secure hemostasis. Procedure well tolerated and uncomplicated. 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 Findings:: Hemodynamics: Central aortic pressure is 152 over 76 left ventricle 158/0 end-diastolic pressure 14 there is no gradient on pullback across the aortic valve. Left ventricle: The LV is normal in size all segments contract adequately In the PUGH projection the global ejection fraction is 50%. the left main coronary artery is nicely patent there is about 20-30% distal stenosis of the left main the left anterior descending is a moderate caliber artery extending down to the apex. The LAD has mild luminal irregularities in the 1st 3rd of the vessel. The presents no more than 20-30% stenosis. Angiographically unchanged compared to 202 the circumflex is a small to medium caliber vessel with no significant lesions. There is a visible stent material in the circumflex trunk after the OM 1 branch takes is origin. This is nicely patent with no loss of lumen. The OM1 is a small vessel which was also stented at that time also remains widely patent with no loss of lumen. The right coronary artery is medium in caliber and dominant to the posterior circulation the right coronary has modest luminal irregularities in the trunk and in the RPL branch but no angiographically significant lesions are seen. No change in comparison in appearance to 202 Conclusion:: 1. right coronary dominant circulation with no significant coronary artery lesions 2. previously deployed stents in the mid circumflex and OM1 branches as described above remain nicely patent 3. modest non flow-limiting atherosclerosis in the distal left main, proximal LAD as detailed above also unchanged comparison with 202 4. adequate left ventricular systolic function with ejection fraction of 50% as seen in the PUGH projection Isaac Chao MD [facility]
== END 2023-03-04 11:45 | disposition home or self-care (01) ==
PROVIDERS: PCP Family Medicine; Visit Provider Specialist
PROC: 4A023N7 Measurement of Cardiac Sampling and Pressure, Left Heart, Percutaneous Approach (ICD-10-PCS; CPT 93452; principal; 2023-03-04 08:30)
DX: I47.20 Ventricular tachycardia, unspecified (principal); I25.10 Atherosclerotic heart disease of native coronary artery without angina pectoris; I12.9 Hypertensive chronic kidney disease with stage 1 through stage 4 chronic kidney disease, or unspecified chronic kidney disease; N18.31 Chronic kidney disease, stage 3a; E78.2 Mixed hyperlipidemia; J34.2 Deviated nasal septum; J30.2 Other seasonal allergic rhinitis; Z87.891 Personal history of nicotine dependence; Z79.82 Long term (current) use of aspirin; Z79.51 Long term (current) use of inhaled steroids; Z95.5 Presence of coronary angioplasty implant and graft; Z82.49 Family history of ischemic heart disease and other diseases of the circulatory system
CPT/HCPCS: 36415; 80048; 85025; 93458; C1760; C1887; C1894; G0269; J1644; J2250; J3010; J7040

== ENCOUNTER 2023-04-04 06:46 | Outpatient (CLI) | payer MEDICARE, SELFPAY ==
[2023-04-04 08:19] LABS: Cholesterol 166 mg/dL (0-200); HDL Direct 55 mg/dL; Triglycerides 140 mg/dL (<150)
[2023-04-04 08:33] LABS: LDL Cholesterol Direct 77 mg/dL
[2023-04-04 08:48] LABS: Prostate Specific Antigen 0.5 ng/mL (< OR = 4.0)
== END 2023-04-04 06:47 | disposition home or self-care (01) ==
PROVIDERS: PCP Family Medicine; Visit Provider Nurse Practitioner Family
DX: E78.2 Mixed hyperlipidemia (principal); Z12.5 Encounter for screening for malignant neoplasm of prostate; I10 Essential (primary) hypertension
CPT/HCPCS: 36415; 80061; 84153; 84443; G0103

== ENCOUNTER 2024-02-07 03:44 | Day surgery (SDC) | payer OTHER, SELFPAY ==
--- NOTE | 2024-02-03 12:18 | PC.NURSE ---
Report to the Outpatient Waiting Room, entrance under the green pavilion located off [facility], at time _9:30 AM on date 02/07/24 . Planned Procedure Time: __11:30 AM .? Time changes happen often and if your time is changed the preop area will call you the afternoon before. - You and your visitor will be asked to self-screen and do not enter if you have any COVID symptoms. Please call surgeon if you need to reschedule. - A mask is optional within the hospital at this time. Patients may have clear liquids (water, carbonated beverages, clear teas, apple juice) until 3 hours prior to surgery(8:30 AM) with a maximum of 20 ounces. - No food from midnight until time of surgery and no smoking - Infants may have breast milk until 4 hours before surgery, formula 6 hours prior to surgery. - Children will be allowed to drink immediately following surgery.? If applicable, please bring a bottle or sippy cup to assist with drinking. Juice, water, soda, and popsicles are readily available.? For infants on formula, please bring formula the day of surgery.? Pacifiers are allowed. Take only the following medications with a SIP of water on the morning of surgery: INHALER,AMLODIPINE,ESCITALOPRAM,METOPROLOL DO NOT STOP ANY OF YOUR OTHER PRESCRIPTION MEDICATIONS PRIOR TO SURGERY EXCEPT THE FOLLOWING Medications to discontinue per physician ____WIFE STATES HOLD ASPIRIN 7 DAYS PRE OP PER DR CUENCA Date to take last dose____01/30/24 Please no make-up, nail american, hairspray, perfume, deodorant, or body powder the day of surgery.? No jewelry (including any body piercings) or valuables the day of surgery, leave them at home.? Please take a shower or bath the night before, or the morning of, surgery with an antibacterial soap.? Wear comfortable, loose fitting clothing.? Children are encouraged to wear pajamas. - Jewelry must be removed prior to entering the operating room.? Rings and piercings that are not removed may be cut off. - The hospital will not accept responsibility for valuables.? - Please leave all valuables, including medications, at home the day of surgery. If you are going home after surgery, a licensed salesperson driver must drive you home.? - NO public transportation without another adult if you receive anesthesia. - We recommend that an adult stay with you for 24 hours following discharge. - We also recommend that you do not drive, make important decision, drink alcoholic beverages, or take any drugs that were not prescribed by your health care provider for at least 24 hours after your discharge time. For Pediatric surgeries, we recommend two adults accompany the child home. Follow any additional instructions given to you from your surgeon. Telephone instructions given to __WIFE DEBBIE and asked if any additional questions and then verbalized understanding. Patient advised to call surgeon office or pre surgery nurse liaison [phone] if any additional questions.
[2024-02-03 12:31] VITALS: BMI 35.9
--- NOTE | ~2024-02-07 | XR_ITS ---
EXAMINATION: XR surgery orthopedic DATE: 02/07/2024 12:32 INDICATION: Kathy's bunion of left foot. TECHNIQUE: A single intraoperative fluoroscopic view of left foot was obtained. I was not present. Fl uoroscopy exposure time was 3 seconds. COMPARISON: None. FINDINGS: There are changes of resection of head of fifth metatarsal. IMPRESSION: 1. Resection of head of fifth metatarsal. Reviewed, dictated and finalized at location A.
--- NOTE | 2024-02-07 07:21 | WPDHPUPDATE1 ---
History and Physical Update Update Date/Time: 02/07/24 07:21 History and Physical has been reviewed, including an updated exam of the patient. There are NO changes in the patient's condition. Risks, benefits, and alternatives have been discussed and questions answered. Patient agrees to proceed with procedure.
[2024-02-07 10:02] VITALS: BP 125/87; PULSE 79; RESP 18; TEMP 36.4; O2SAT 98
--- NOTE | 2024-02-07 10:19 | WPDANESEPPF ---
Anes - Initial Pre Proc Eval Procedure: Operation Date: 02/07/24 11:30 Proposed Procedures p Fifth Metatarsal Head Resection Left Foot - Solomon Benson Jr., DPM Date/Time: 02/07/24 10:19 Surgeon: Solomon Benson Jr., DPM Pre Op Diagnosis: kimberly mendoza left foot Patient Data Age: 68 Gender: M Height: 1.83 m Weight: 120.9 kg Last Vital Signs Temp 36.4 C 02/07/24 10:02 Pulse 79 02/07/24 10:02 Resp 18 02/07/24 10:02 BP 125/87 02/07/24 10:02 Pulse Ox 98 02/07/24 10:02 O2 Del Method Room Air 02/07/24 10:02 Allergies Allergy/AdvReac Type Severity Reaction Status Date / Time tramadol AdvReac Severe tongue Verified 02/07/24 09:36 swelling lisinopril AdvReac Intermediate Swelling Verified 02/07/24 09:36 of Lip/Tongue/Throat Home Medications Medication Instructions Recorded Confirmed Type fluticasone propionate 50 1 spray intranasal DAILY 06/09/19 02/07/24 History mcg/actuation nasal spray,suspension (Flonase Allergy Relief) aspirin 81 mg tablet,delayed 81 mg PO QAM 30 days #30 tabs 08/23/20 02/07/24 Rx release loratadine 10 mg capsule 10 mg PO DAILY 01/19/21 02/07/24 History amlodipine 5 mg tablet See Rx Instructions .Route 03/26/23 02/07/24 Rx .COMPLEX #90 tabs guanfacine 1 mg tablet 1 mg PO DAILY 07/24/23 02/07/24 History escitalopram oxalate 10 mg tablet 10 mg PO DAILY anxiety #90 tabs 08/24/23 02/07/24 Rx (Lexapro) atorvastatin 80 mg tablet See Rx Instructions .Route 09/03/23 02/07/24 Rx .COMPLEX #90 tabs montelukast 10 mg tablet 10 mg PO DAILY seasonal allergies 12/01/23 02/07/24 Rx (Singulair) #90 tabs albuterol sulfate 1.25 mg/3 mL 1.25 mg (3 mL) inhalation Q4-6H 01/06/24 02/07/24 Rx solution for nebulization PRN shortness of breath or wheezing #75 mL metoprolol tartrate 25 mg tablet See Rx Instructions .Route BID 01/06/24 02/07/24 Rx #180 tabs budesonide 1 mg/2 mL suspension 1 mg (2 mL) inhalation DAILY #60 mL 01/13/24 02/07/24 Rx for nebulization albuterol 90 mcg-budesonide 80 2 inh inhalation PRN PRN shortness 02/03/24 02/07/24 History mcg/actuation HFA aerosol inhaler of breath (Airsupra) oxycodone-acetaminophen 5 mg-325 1 tablet PO PRN PRN Pain 02/03/24 02/07/24 History mg tablet Patient hx anesthesia problems: none Family hx anesthesia problems: none Results Review: All pre-operative results and documents have been reviewed as part of the pre-operative evaluation. [facility] Past Medical History Medical History (Updated 02/07/24 @ 10:20 by Chepe Crain DO) Arthritis of shoulder region, right, degenerative CAD (coronary artery disease) Capsulitis of right shoulder Chronic kidney disease, stage 3a Deviated septum Essential (primary) hypertension History of heart attack History of ventricular tachycardia Mixed hyperlipidemia Polyarticular arthritis Right rotator cuff tendinitis Right shoulder strain Seasonal allergies Stage 3 acute kidney injury Trigger point of right shoulder region Vision abnormalities Visit for [facility] health check Surgical History Surgical History (Updated 02/07/24 @ 10:20 by Chepe Crain DO) History of appendectomy History of coronary artery stent placement 2020 Hx of colonoscopy Family History Family History Mother Hypertension Alzheimer disease Father Family history of coronary artery disease Acute myocardial infarction Sibling Family history of coronary artery disease Cerebrovascular accident Sibling Family history of coronary artery disease Heart disease Other Family history of malignant neoplasm Social History Social History Smoking packs per day: 1 Smoking cigarettes per day: 20.0 Years smoked: 40 Smoking pack-years: 40.00 Smoking status: Former smoker T
[2024-02-07] MEDS: LACTATED RINGERS 1,000 ML 30 ML IV CONT (10:34)
[2024-02-07] MEDS: ceFAZolin 3 GM/D5W 100 ML 100 ML IVPB (11:58)
[2024-02-07] MEDS: LIDOCAINE HCL 2% PF INJ 5 ML VIAL 10 ML INFILTRATE (12:06)
[2024-02-07 12:32] VITALS: BP 115/81; PULSE 74; RESP 20
[2024-02-07 13:00] VITALS: BP 125/79; PULSE 65; RESP 20
[2024-02-07 13:30] VITALS: BP 149/88; PULSE 65; RESP 20
--- NOTE | 2024-02-10 11:22 | W.PM.PROC2 ---
Procedure Note - Detailed Date of Procedure 02/10/24 Pre-op Diagnosis El bunion left foot Post-op Diagnosis Same Procedure Performed Fifth metatarsal head resection left foot Surgeon Solomon Benson Jr., DPM Anesthesia MAC and Local Indications Painful left lateral forefoot Description of Procedure Under mild sedation, the patient was brought in to the operating room, placed on the operating table in the supine position. A pneumatic ankle tourniquet was placed about the patient's leg. Following monitored anesthesia care, local anesthesia was obtained about the patients ankle utilizing 20 mL of a 1:1 mixture of 2% Lidocaine plain and 0.5% Marcaine plain. The foot was then scrubbed, prepped, and draped in the usual aseptic manner. An Esmarch bandage was then used to exsanguinate the patient's foot and the pneumatic ankle tourniquet was then inflated. Attention was directed to the dorsal lateral aspect of the fifth metatarsal head where a 3 cm incision was made just lateral to the extensor digitorum longus tendon to the fifth digit to the shaft of the fifth metatarsal. The incision was continued deep down through the subcutaneous tissues using sharp and blunt dissection. All bleeders were cauterized as necessary.A full-length periosteal incision was made overlying the fifth metatarsal distally. A McGlamry Elevator was used to free the plantar structures to the fifth metatarsal head. Next, a sagittal bone saw was used to resect the head of the fifth metatarsal proximal at the neck of the 5th metatarsal. The fifth metatarsal was removed from the operative site and placed on the back table and discarded. No abnormalities to the head of the fifth metatarsal. Fluoroscopy was used to make sure that the resected distal fifth metatarsal was adequate. The edges were smoothed out with a bone rasp. Next, the periosteum and capsular structures overlying the 5th metatarsophalangeal joints were reapproximated with 4-0 Vicryl. Next, subcutaneous structures were reapproximated and coapted utilizing 4-0 Vicryl. Next, the skin was reapproximated and coapted utilizing 4-0 Monocryl in running subcuticular suture fashion technique. Upon completion of the procedure, the incision was dressed with Adaptic, 4 x 4's, Kerlix, and Coban. The pneumatic ankle tourniquet was then deflated and a prompt hyperemic response noted to all digits of the foot. A surgical shoe was then applied. The patient did very well with the procedure and the anesthesia. The patient was transferred to the recovery room with vital signs stable and vascular status intact to all toes of the affected foot. Following a period of postoperative monitoring, the patient will be discharged home on the following written and oral postoperative instructions: 1. Keep the dressing clean, dry, and intact. Use a cast protector bag with showers. 2. The patient should use a surgical shoe for ambulation postoperatively. 3. The patient should be on bedrest with bathroom privileges and elevate the affected foot when at rest. 4. The patient to contact Dr. Benson for all postop care and if any problems arise. 5. Prescriptions were written for Percocet 5/325 dispensed 40 to be taken 1 p.o. q.4 to 6 hours as needed for severe pain. 6. Take one Aspirin 325mg every 24hours for two weeks post operatively. Estimated Blood Loss 1 Drains No Packing No Pathology None sent Complications No immediate complications Condition Stable Disposition Same day
== END 2024-02-07 13:40 | disposition home or self-care (01) ==
PROVIDERS: PCP Family Medicine; Visit Provider Podiatrist Foot & Ankle Surgery
PROC: (CPT 28104; principal; 2024-02-07 11:30)
DX: M21.622 Bunionette of left foot (principal); I25.10 Atherosclerotic heart disease of native coronary artery without angina pectoris; I25.2 Old myocardial infarction; E78.2 Mixed hyperlipidemia; I12.9 Hypertensive chronic kidney disease with stage 1 through stage 4 chronic kidney disease, or unspecified chronic kidney disease; N18.31 Chronic kidney disease, stage 3a; Z79.82 Long term (current) use of aspirin; Z79.51 Long term (current) use of inhaled steroids; Z95.5 Presence of coronary angioplasty implant and graft; Z87.891 Personal history of nicotine dependence; E66.9 Obesity, unspecified; Z68.36 Body mass index [BMI] 36.0-36.9, adult
CPT/HCPCS: 28113; 99199; J0690; J2003; J2704; J3010; J7120

== ENCOUNTER 2024-04-04 06:55 | Outpatient (CLI) | payer OTHER, SELFPAY ==
[2024-04-04 07:12] LABS: Hematocrit 45.5 % (42.0-52.0); Hemoglobin 14.8 g/dL (14.0-18.0); Mean Corpuscular HGB Conc 32.5 g/dl (32-36); Mean Corpuscular Hemoglobin 31.6 pg (26-34); Mean Platelet Volume 10.2 fl (7.4-10.4); Platelet Count Result 230 k/mm3 (150-375); Red Blood Count 4.69 M/mm3 (4.6-6.20); White Blood Count 5.9 K/mm3 (4.5-10.0)
[2024-04-04 07:29] LABS: Alanine Aminotransferase 39 U/L (6-50); Albumin Level 4.6 g/dL (3.5-5.1); Alkaline Phosphatase 83 U/L (38-126); Anion Gap 6 mmol/L (4-12); Aspartate Amino Transferase 53 U/L (17-59); Blood Urea Nitrogen 19 mg/dL (9-20); Calcium 9.2 mg/dL (8.4-10.2); Carbon Dioxide 30 mmol/L (22-30); Chloride 105 mmol/L (98-107); Cholesterol 126 mg/dL (0-200); Estimated Glomerular Filt Rate 55; Glucose 110 mg/dL (65-110); HDL Direct 48 mg/dL; Potassium 4.5 mmol/L (3.4-5.0); Sodium 141 mmol/L (137-145); Triglycerides 77 mg/dL (<150)
[2024-04-04 07:38] LABS: LDL Cholesterol Direct 52 mg/dL
[2024-04-04 08:34] LABS: Vitamin D 25 Hydroxy 47.3 ng/mL
== END 2024-04-04 06:56 | disposition home or self-care (01) ==
LOC: ANHLAB 06:57
PROVIDERS: PCP Family Medicine; Visit Provider Nurse Practitioner Family
DX: I10 Essential (primary) hypertension (principal); J30.2 Other seasonal allergic rhinitis; R63.5 Abnormal weight gain; N18.31 Chronic kidney disease, stage 3a; E55.9 Vitamin D deficiency, unspecified
CPT/HCPCS: 36415; 80053; 80061; 82306; 84443; 85027

== ENCOUNTER 2024-04-14 09:54 | Outpatient (CLI) | payer OTHER, SELFPAY ==
--- NOTE | 2024-04-14 14:32 | WPDPFTINT ---
PFT Procedure Performed PFT Procedure Performed Plethysmography (Lung Vol) Diffusing Cap (DLCO) Flow Vol Loop Spirometry w/o Bronchodil PFT Interpretation This is a pulmonary function test with spirometry, plethysmography and diffusing capacity. The test was performed and results interpreted in accordance with the 2019 and 2005 ATS/ERS Task Force guidelines respectively using the Global Lung Function Initiative-2012 reference equations. Patient demonstrated good effort and cooperation. Reproducibility criteria were met. The quality of the spirometry maneuver was Grade A. Findings: Spirometry: The contour the inspiratory and expiratory flow tracing are normal. The FVC is 4.21 L, 88% predicted. The FEV1 is 2.97 L, 82% predicted. The FEV1: FVC ratio 71%. Plethysmography: The total lung capacity is 2.82 L, 109% predicted. The functional residual capacity is 4.67 L, 115% predicted. The residual volume is 4.07 L, 160% predicted. The residual volume: Total lung capacity ratio is 49%. Diffusing capacity: The diffusing capacity unadjusted for hemoglobin and carboxyhemoglobin is 25.3, 90% predicted. The diffusing capacity adjusted for alveolar volume is 4.21, 109% predicted. Impression: The spirometry is normal without evidence of an obstructive abnormality. The increase in residual volume to total lung volume ratio is consistent with hyperinflation. The diffusing capacity is normal. There are no prior studies for comparison
== END 2024-04-14 09:55 | disposition home or self-care (01) ==
PROVIDERS: PCP Family Medicine; Visit Provider Nurse Practitioner Family
DX: R06.02 Shortness of breath (principal)
CPT/HCPCS: 94375; 94726; 94729

== ENCOUNTER 2025-01-07 07:00 | Outpatient (CLI) | payer MEDICARE, SELFPAY ==
--- OUTSIDE RECORDS SUMMARY | 2025-01-07 07:04 | XMS_ITS | Clinical Summary ---
Author Organization [facility] Address [address] [place] [address] Phone Care Team Providers Care Gas Appliance Installer Name Role Phone Shabbir Licona MD Primary Care Provider [phone] Allergies Active Allergy Reactions Criticality Noted Date Comments Lisinopril 02/28/2022 angioedema Medications fluticasone (FLONASE) 50 MCG/ACT nasal spray 1 daily 0 02/20/2018 Active Loratadine 10 MG capsule 1 daily 0 02/24/2018 Active Aspirin Low Dose 81 MG EC tablet Take 81 mg by mouth 1 (one) time each day in the morning 08/23/2020 Active metoprolol tartrate (LOPRESSOR) 25 MG tablet Take 25 mg by mouth every 12 (twelve) hours 08/23/2020 Active Brilinta 90 MG tablet Take 90 mg by mouth every 12 (twelve) hours 08/23/2020 Active atorvastatin (LIPITOR) 80 MG tablet Take 80 mg by mouth daily Active omeprazole (PriLOSEC) [address] capsule Take 20 mg by mouth daily Active sildenafil (VIAGRA) 100 MG tablet 08/01/2021 Active albuterol 1.25 MG/3ML nebulizer solution 05/22/2021 Active amLODIPine (NORVASC) 5 MG tablet Take 5 mg by mouth 1 (one) time each day 01/30/2022 Active Active Problems Problem Noted Date Diagnosed Date Dizziness 09/18/2021 Coronary atherosclerosis 09/05/2020 Stage 3b chronic kidney disease 02/24/2018 Essential (primary) hypertension 02/24/2018 Hyperlipidemia 02/24/2018 Gastro-esophageal reflux disease without esophag itis 02/24/2018 Immunizations Immunization Administration Dates Next Due Influenza TIV (IM) 02/28/2022(Deferred: Patient Refused) Family History Medical History Relation Comments Kidney disease Neg Hx Social History Tobacco Use Types Packs/Day Years Used Date Smoking Tobacco: Former Cigarettes Q uit: 04/29/2009 Smokeless Tobacco: Never Alcohol Use Standard Drinks/Week Comments No 0 (1 standard drink = 0.6 oz pur e alcohol) Sex and Gender Information Value Date Recorded Sex Assigned at Not on file Legal Sex Male 9:49 AM [facility] Gender Identity Not on file Sexual Orientation Not on file Last Filed Vital Signs Vital Sign Reading Time Taken Comments Blood Pressure 122/70 02/28/2022 9:13 AM CDT Pulse 72 02/28/2022 9:13 AM CDT Temperature 36.2 C (97.1 F) 02/28/2022 9:13 AM CDT Respiratory Rate - - Oxygen Saturation - - Inhaled Oxygen Concentration - - Weight 116 kg (256 lb) 02/28/2022 9:13 AM CDT Height 185.4 cm (6' 1) 02/28/2022 9:13 AM CDT Body Mass Index 33.78 02/28/2022 9:13 AM CDT Plan of Treatment Health Maintenance Due Date Last Done Comments Pneumococcal PPSV23/PCV13 65 + Years / Low and Medium Risk (1 of 2 - PCV) 2006 Influenza Vaccine (#1) 2024 Insurance [facility] MEDICARE Care Teams Gas Appliance Installer Relationship Specialty Start Date End Date Shabbir Licona MD [address] [place] [id number] PCP - General Family Medicine 12/17/18
--- OUTSIDE RECORDS SUMMARY | 2025-01-07 07:04 | XMS_ITS | Clinical Summary ---
Author Organization [facility] [address] Address [address] [place] [address] Care Team Providers Care Structural Fitter Name Role Phone Shabbir Licona MD Primary Care Provider [phone] Allergies Active Allergy Reactions Criticality Noted Date Comments Lisinopril Angioedema High 02/28/2022 angioedema Medications atorvastatin (LIPITOR) 80 mg tablet Take 1 tablet (80 mg total) by mouth daily Active aspirin 81 mg enteric coated tablet Take 1 tablet (81 mg total) by mouth daily Active loratadine 10 mg capsule Take by mouth daily Active fluticasone propionate (FLONASE) 50 mcg/actuation nasal spray Administer 1 spray into each nostril daily Active omeprazole (PriLOSEC) 20 mg capsule Take 1 capsule (20 mg total) by mouth daily Active metoprolol tartrate (LOPRESSOR) 25 mg immediate release tablet Take 1 tablet (25 mg total) by mouth daily 5 Active guanFACINE (TENEX) 1 mg tablet Take 1 tablet (1 mg total) by mouth nightly 90 tablet 3 5 Active amLODIPine (NORVASC) 10 mg tablet TAKE 1 TABLET BY MOUTH ONCE DAILY 90 tablet 1 5 Active montelukast (SINGULAIR) 10 mg tablet TAKE 1 TABLET BY MOUTH DAILY FOR SEASONAL ALLERGIES 5 Active doxycycline hyclate 100 mg capsule TAKE 1 CAPSULE BY MOUTH DAILY FOR RASH 5 Active albuterol 1.25 mg/3 mL nebulizer solution 2 Active Active Problems Problem Noted Date Diagnosed Date Morbid (severe) obesity due to excess calories 0 06/03/2023 V-tach 02/18/2023 TIA (transient ischemic attack) 01/14/2023 Dizziness 09/18/2021 Stage 3a chronic kidney disease 09/06/[address] elevation myocardial infarction (S CHRISTIANO) 09/05/2020 Coronary artery disease invo lving tangirnaq coronary artery of tangirnaq heart without angina pectoris 09/05/2020 Hyperlipidemia Hypertension Encounters Date Type Department Care Team Description 12/07/2024 9:15 AM CDT Office Visit [facility] Cardiology [address] [place] [phone] Mayank Lomeli MD Coronary artery disease involving tangirnaq coronary artery of tangirnaq heart without angina pectoris (Primary Dx); History of ST elevation myocardial infarction (STEMI); Primary hypertension; Mixed hyperlipidemia from Last 3 Months Surgical History Surgery Date Site/Laterality Comments CARDIAC STENT PLACEMENT APPENDECTOMY Mar 2018 CARDIAC CATHETERIZATION 02/27/2023 - 03/28/2023 Medical History Medical History Date Comments Hypertension Hyperlipidemia Family History Medical History Relation Name Comments Stroke Brother 1 Ulises Heart disease Brother 2 Sher Heart attack Father Bruz Relation Name Status Comments Brother 1 Ulises Alive Brother 2 Sher Alive Father Bruz (Age 59) Mother (Age 87) Sister 1 Alive Sister 2 Alive Social History Tobacco Use Types Packs/Day Years Used Date Smoking Tobacco: Former Cigarettes Q uit: 2009 Smokeless Tobacco: Never Tobacco Cessation:Counseling Given: Not Answered Sex and Gender Information Value Date Recorded Sex Assigned at Not on file Legal Sex Male 4:12 PM CDT Gender Identity Not on file Sexual Orientation Not on file Obstetrics History Last Filed Vital Signs Vital Sign Reading Time Taken Comments Blood Pressure 140/86 12/07/2024 8:57 AM CDT Pulse 64 12/07/2024 8:57 AM CDT Temperature 36.6 C (97.8 F) 02/09/2013 4:35 PM CDT Respiratory Rate - - Oxygen Saturation 99% 12/07/2024 8:57 AM CDT Inhaled Oxygen Concentration - - Weight 118.4 kg (261 lb) 12/07/2024 8:57 AM CDT Height 185.4 cm (6' 1) 12/07/2024 8:57 AM CDT Body Mass Index 34.43 12/07/2024 8:57 AM CDT Plan of Treatment Health Maintenance Due Date Last Done Comments Colon Cancer Screening-Colonoscopy 1956 Depression Screening 1956 Fall Risk Assessment 1956 Hepatitis C Screening 1956 Prostate Cancer Screening-PSA 1956 DTaP/Tdap/Td Vaccine (1 - Tdap) 10/01/1967 Hepatitis B Screening 1974 Pneumococcal vaccine 65+ (1 of 1 - PCV) 2006 Zoster Vaccine (1 of 2) 2006 Abdominal Aortic Aneurysm (AAA) Screen 2021 Well Visit 65+ 2021 Influenza Vaccine (#1) 2024 Insurance [facility] MEDICARE ADVANTAGE [facility] MEDICARE ADVANTAGE Care Teams Structural Fitter Relationship Specialty Start Date End Date Shabbir Licona MD PCP - General 07/27/16
--- OUTSIDE RECORDS SUMMARY | 2025-01-07 07:05 | XMS_ITS | Encounter Summary ---
Author Organization [facility] Address [address] [facility] [address] [place] [address] Care Team Providers Care Advertising Operations Manager Name Role Phone Shabbir Licona MD Primary Care Provider Encounter Details Date Type Department Care Team (Late st Contact Info) Description 07/13/2016 Orders Only [facility] ProviderKrissy MD [address] [place] [id number] Social History Tobacco Use Types Packs/Day Years Used Date Smoking Tobacco: Never Assessed Sex and Gender Information Value Date Recorded Sex Assigned at Not on file Legal Sex Male 4:12 PM CDT Gender Identity Not on file Sexual Orientation Not on file documented as of this encounter Plan of Treatment Not on file documented as of this encounter Procedures Procedure Name Priority Date/Time Associated Diagnosis Comments CARDIOLOGY REPORT 07/13/2016 documented in this encounter Results * CARDIOLOGY REPORT (07/13/2016) Anatomical Region Laterality Modality Other Narrative 07/13/2016 Ordered by an unspecified provider. Historical Provider [facility] GARNICA Final Result documented in this encounter Visit Diagnoses Not on filedocumented in this encounter Care Teams Advertising Operations Manager Relationship Specialty Start Date End Date Shabbir Licona MD PCP - General 07/27/16 documented as of this encounter
--- NOTE | 2025-01-07 08:10 | ECG_ITS ---
Test Date: 2025-01-07 08:16:21 Measurements Intervals [place] Rate: 63 P: 10 PA: 167 QRS: -14 QRSD: 138 T: 15 QT: 413 QTc: 425 Interpretive Statements SINUS RHYTHM RIGHT BUNDLE BRANCH BLOCK [120+ ms QRS DURATION, UPRIGHT V1, 40+ ms S IN I/aVL/V4/V5/V6] No previous ECG available for comparison Electronically Signed On 01-07-2025 11:24:43 CDT by Mikal Terry M.D.
== END 2025-01-07 07:01 | disposition home or self-care (01) ==
PROVIDERS: PCP Nurse Practitioner Family; Visit Provider Anesthesiology
DX: Z01.818 Encounter for other preprocedural examination (principal); I10 Essential (primary) hypertension; I45.10 Unspecified right bundle-branch block
CPT/HCPCS: 93005

== ENCOUNTER 2025-01-15 07:42 | Day surgery (SDC) | payer MEDICARE, SELFPAY ==
[2024-12-24 14:19] VITALS: BMI 33.0
[2025-01-06 14:11] VITALS: BMI 37.3
--- NOTE | 2025-01-06 14:37 | PC.NURSE ---
1400- PT GAVE VERBAL PERMISSION TO SPEAK WITH HIS , ROHIT, REGARDING MEDICAL INFORMATION.
--- NOTE | ~2025-01-15 | XR_ITS ---
XR surgery orthopedic Indication: Fifth metatarsal head resection right foot TECHNIQUE: Fluoroscopy used during Fifth metatarsal head resection right foot performed by [Solomon Benson Jr., DPCarlos] on 01/15/2025. 3 seconds of fluoroscopy with one fluoroscopic images captured. FINDINGS: Correlate with procedure note. IMPRESSION: Fluoroscopy used during Fifth metatarsal head resection right foot. Reviewed, dictated and finalized at location O.
--- NOTE | 2025-01-15 07:16 | WPDHPUPDATE1 ---
History and Physical Update Update Date/Time: 01/15/25 07:16 History and Physical has been reviewed, including an updated exam of the patient. There are NO changes in the patient's condition. Risks, benefits, and alternatives have been discussed and questions answered. Patient agrees to proceed with procedure.
--- OUTSIDE RECORDS SUMMARY | 2025-01-15 07:48 | XMS_ITS | Encounter Summary ---
Author Organization [facility] Address [address] [facility] [address] [place] [address] Care Team Providers Care Lap Welder Name Role Phone Shabbir Licona MD Primary Care Provider [phone] Encounter Details Date Type Department Care Team (Late st Contact Info) Description 07/13/2016 Orders Only [facility] ProviderKrissy MD [address] [place] [address] Social History Tobacco Use Types Packs/Day [...] on filedocumented in this encounter Care Teams Lap Welder Relationship Specialty Start Date End Date Shabbir Licona MD PCP - General 07/27/16 documented as of this encounter
--- OUTSIDE RECORDS SUMMARY | 2025-01-15 07:48 | XMS_ITS | Clinical Summary ---
Author Organization [facility] Address [address] [place] [address] Phone Care Team Providers Care Space Systems Operations Manager Name Role Phone Shabbir Licona MD Primary Care Provider [phone] Allergies Active Allergy Reactions Criticality Noted Date [...] on file Legal Sex Male 9:49 AM [facility] Gender Identity Not on file Sexual Orientation [...] PCV) 2006 Influenza Vaccine (#1) 2024 Insurance [facility] MEDICARE Care Teams Space Systems Operations Manager Relationship Specialty Start Date End Date Shabbir Licona MD [address] [place] [phone] PCP - General Family Medicine 12/17/18
--- OUTSIDE RECORDS SUMMARY | 2025-01-15 07:48 | XMS_ITS | Clinical Summary ---
Author Organization [facility] [address] Address [address] [place] [address] Care Team Providers Care Charge Histotechnologist Name Role Phone Shabbri Licona MD Primary Care Provider + [phone] Allergies Active Allergy Reactions Criticality Noted Date [...] CHRISTIANO) 09/05/2020 Coronary artery disease invo lving [place] coronary artery of [place] heart without angina pectoris 09/05/2020 Hyperlipidemia Hypertension Encounters Date Type Department Care Team Description 12/07/2024 9:15 AM CDT Office Visit [facility] Cardiology [address] [place] [phone] Mayank Lomeli MD Coronary artery disease involving kl[place] ka[place] coronary artery of [place] heart without angina pectoris (Primary Dx); History [...] 65+ 2021 Influenza Vaccine (#1) 2024 Insurance [facility] MEDICARE ADVANTAGE [facility] MEDICARE ADVANTAGE Care Teams Charge Histotechnologist Relationship Specialty Start Date End Date Shabbir Licona MD PCP - General 07/27/16
[2025-01-15 08:40] VITALS: BP 157/104; PULSE 62; RESP 20; TEMP 36.5; O2SAT 100
[2025-01-15] MEDS: LACTATED RINGERS 1,000 ML 30 ML IV CONT (08:40)
--- NOTE | 2025-01-15 10:03 | WPDANESEPPF ---
Anes - Initial Pre Proc Eval Procedure: Operation Date: 01/15/25 09:30 Proposed Procedures p Fifth Metatarsal Head Resection Right Foot - Solomon Benson Jr., EZEQUIEL Date/Time: 01/15/25 10:03 Surgeon: Solomon Benson Jr., DPM Pre Op Diagnosis: Senthil Villanueva Right Foot Patient Data Age: 69 Gender: M Height: 1.83 m Weight: 122.4 kg Last Vital Signs Temp 97.7 F 01/15/25 08:40 Pulse 62 01/15/25 08:40 Resp 20 01/15/25 08:40 BP 157/104 H 01/15/25 08:40 Pulse Ox 100 01/15/25 08:40 O2 Del Method Room Air 01/15/25 08:40 Allergies Allergy/AdvReac Type Severity Reaction Status Date / Time tramadol AdvReac Severe tongue Verified 01/15/25 08:49 swelling lisinopril AdvReac Intermediate Swelling Verified 01/15/25 08:49 of Lip/Tongue/Throat Home Medications ?Medication ?Instructions ?Recorded ?Confirmed ?Type fluticasone propionate 50 1 spray intranasal DAILY 06/09/19 01/15/25 History mcg/actuation nasal spray,suspension (Flonase Allergy Relief) aspirin 81 mg tablet,delayed 81 mg PO QAM 30 days #30 tabs 08/23/20 01/15/25 Rx release guanfacine 1 mg tablet 1 mg PO DAILY 07/24/23 01/15/25 History albuterol sulfate 1.25 mg/3 mL 1.25 mg (3 mL) inhalation Q4-6H 01/06/24 01/15/25 Rx solution for nebulization PRN shortness of breath or wheezing #75 mL budesonide 1 mg/2 mL suspension 1 mg (2 mL) inhalation DAILY #60 mL 01/13/24 01/15/25 Rx for nebulization albuterol sulfate 90 mcg/actuation 1 inh inhalation Q4H PRN shortness 06/14/24 01/15/25 Rx aerosol inhaler (Ventolin HFA) of breath or wheezing #8.5 grams nabumetone 750 mg tablet 750 mg PO BID PRN muscle spasm #20 07/07/24 01/15/25 Rx tabs montelukast 10 mg tablet 10 mg PO DAILY seasonal allergies 08/06/24 01/15/25 Rx (Singulair) #90 tabs atorvastatin 80 mg tablet 80 mg PO DAILY #90 tabs 08/25/24 01/15/25 Rx metoprolol tartrate 25 mg tablet 25 mg PO BID #180 tabs 09/23/24 01/15/25 Rx amlodipine 5 mg tablet See Rx Instructions .Route 09/28/24 01/15/25 Rx .COMPLEX #90 tabs oxycodone-acetaminophen 5 mg-325 1 tablet PO Q6H PRN pain #14 tabs 01/14/25 Rx mg tablet (Percocet) Patient hx anesthesia problems: none Family hx anesthesia problems: none Results Review: All pre-operative results and documents have been reviewed as part of the pre-operative evaluation. [facility] Past Medical History Medical History History of heart attack CAD (coronary artery disease) History of ventricular tachycardia Chronic kidney disease, stage 3a Right rotator cuff tendinitis Trigger point of right shoulder region Deviated septum Arthritis of shoulder region, right, degenerative Capsulitis of right shoulder Right shoulder strain Seasonal allergies Vision abnormalities Mixed hyperlipidemia Essential (primary) hypertension Stage 3 acute kidney injury Polyarticular arthritis Visit for [facility] health check Surgical History Surgical History History of coronary artery stent placement 2020 Hx of colonoscopy History of appendectomy Family History Family History Mother Hypertension Alzheimer disease Father Family history of coronary artery disease Acute myocardial infarction Sibling Family history of coronary artery disease Cerebrovascular accident Sibling Family history of coronary artery disease Heart disease Other Family history of malignant neoplasm Social History Social History Smoking packs per day: 1 Smoking cigarettes per day: 20.0 Years smoked: 40 Smoking pack-years: 40.00 Smoking status: Former smoker Tobacco type: cigarettes Second hand tobacco smoke exposure: No Smoking end date: 04/29/09 Alcohol intake: current Drinks per week: 0 Alcohol use details: couple times a year Substance use: never Substance use type: does not use Do You Feel Safe in your Home?: Yes Lack of Transportation: No Lack of Food: Never True Current Housing: I Have Housing Concerned About Future Housing: No Difficulty Paying Gas/Electric Bills: No Difficulty Paying for Meds: No Currently Unemployed: No Education: High School Diploma/GED Difficulty w/ Childcare or Family Care: No Living arrangements: with family Occupation/Education: retired Additional occupation/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: [employer]. Gender identity (if verbalized by the patient): Male Spiritual care concerns: No Anes - Eval Final PreProcedure Day of Procedure 01/15/25 10:03 Heart: regular rate and rhythm Lungs: clear to auscultation Airway: Mallampati scale class III Neurological: alert and oriented Last oral intake: >/= 8 hours ASA classification: III Anesthetic plan: proceed Anesthesia type and monitoring: monitored anesthesia care Results Review: All pre-operative results and documents have been reviewed as part of the pre-operative evaluation. Informed Consent: The patient's anesthetic plan and its attendant risks and benefits were discussed with the patient/family/POA. Questions were solicited and answers provided to the satisfaction of the patient/family/POA.
--- NOTE | 2025-01-15 10:38 | WPDANESPN ---
Anes - Prog Note Post-Op Date/Time: 01/15/25 10:38 Vital Signs: Last Vital Signs Temp 97.7 F 01/15/25 08:40 Pulse 62 01/15/25 08:40 Resp 20 01/15/25 08:40 BP 157/104 H 01/15/25 08:40 Pulse Ox 100 01/15/25 08:40 O2 Del Method Room Air 01/15/25 08:40 Pain Score (VAS): no Patient Feedback: Patient satisfied with anesthetic care.
[2025-01-15] MEDS: ceFAZolin SODIUM 3 GM/30 ML SW SYRINGE IV PUSH (10:39)
[2025-01-15] MEDS: BUPivacaine HCL 0.5% 10 ML AMP INFILTRATE (10:42)
[2025-01-15] MEDS: LIDOCAINE 2% PF LOCAL INJ 5 ML VIAL 10 ML INFILTRATE (10:44)
[2025-01-15 10:50] VITALS: BP 136/83; PULSE 70; RESP 16; O2SAT 100
[2025-01-15 11:20] VITALS: BP 158/85; PULSE 68; RESP 18
--- NOTE | 2025-01-15 12:11 | P.OP_ITS ---
Procedure Note - Detailed Date of Procedure 01/15/25 Pre-op Diagnosis Painful Tailor's Bunion Right Foot Post-op Diagnosis Same Procedure Performed Fifth metatarsal head resection right foot Surgeon Solomon Benson Jr., DPM Anesthesia MAC and Local Indications Painful lateral right forefoot Description of Procedure Under mild sedation, the patient was brought in to the operating room, placed on the operating table in the supine position. A pneumatic ankle tourniquet was placed about the patient's leg. Following monitored anesthesia care, local anesthesia was obtained about the patients ankle utilizing 20 mL of a 1:1 mixture of 2% Lidocaine plain and 0.5% Marcaine plain. The foot was then scrubbed, prepped, and draped in the usual aseptic manner. An Esmarch bandage was then used to exsanguinate the patient's foot and the pneumatic ankle tourniquet was then inflated. Attention was directed to the dorsal lateral aspect of the fifth metatarsal head of the right foot where a 2 cm incision was made just lateral to the extensor digitorum longus te ndon to the fifth digit to the shaft of the fifth metatarsal. The incision was continued deep down through the subcutaneous tissues using sharp and blunt dissection. All bleeders were cauterized as necessary.A full-length periosteal incision was made overlying the fifth metatarsal distally. A McGlamry Elevator was used to free the plantar structures to the fifth metatarsal head. Next, a sagittal bone saw was used to resect the head of the fifth metatarsal proximal at the neck of the 5th metatarsal. The fifth metatarsal was removed from the operative site and placed on the back table and discarded. No abnormalities to the head of the fifth metatarsal. Fluoroscopy was used to make sure that the resected distal fifth metatarsal was adequate. The edges were smoothed out with a bone rasp. The operative site was flushed with copious amounts of sterile saline. Next, the periosteum and capsular structures overlying the 5th metatarsophalangeal joints were reapproximated with 3-0 Vicryl. Next, subcutaneous structures were reapproximated and coapted utilizing 3-0 Vicryl. Next, the skin was reapproximated and coapted utilizing 4-0 Monocryl in running subcuticular suture fashion technique. Upon completion of the procedure, the incision was dressed with Adaptic, 4 x 4's, Kerlirik, and Coban. The pneumatic ankle tourniquet was then deflated and a prompt hyperemic response noted to all digits of the foot. A surgical shoe will be applied in PACU. The patient did very well with the procedure and the anesthesia. The patient was transferred to the recovery room with vital signs stable and vascular status intact to all toes of the affected foot. Following a period of postoperative monitoring, the patient will be discharged home on the following written and oral postoperative instructions: 1. Keep the dressing clean, dry, and intact. Use a cast protector bag with showers. 2. The patient should use a surgical shoe for ambulation postoperatively. 3. The patient should be on bedrest with bathroom privileges and elevate the affected foot when at rest. 4. The patient to contact Dr. Benson for all postop care and if any problems arise. 5. Prescriptions were written for Percocet 5/325 dispensed 40 to be taken 1 p.o. q.4 to 6 hours as needed for severe pain. 6. Take one Aspirin 325mg every 24hours for two weeks post operatively. Estimated Blood Loss 1 Drains No Packing No Pathology None sent Complications No immediate complications Condition Stable Disposition Same day
== END 2025-01-15 11:24 | disposition home or self-care (01) ==
PROVIDERS: PCP Nurse Practitioner Family; Visit Provider Podiatrist Foot & Ankle Surgery
PROC: (CPT 28104; principal; 2025-01-15 09:30)
DX: M21.621 Bunionette of right foot (principal)
CPT/HCPCS: 28113; 99199

== ENCOUNTER 2025-03-12 02:26 | Day surgery (SDC) | payer MEDICARE, SELFPAY ==
--- OUTSIDE RECORDS SUMMARY | 1999-06-14 04:00 | XMS_ITS | Continuity of Care Document ---
Author Organization [facility] Address [address] [place] [address] [place] [address] Phone Care Team Providers Care Hospice Educator Name Role Phone Unavailable Unavailable Unavailable Advance Directives Directive Yes / No Effective Date File Name No Information Encounters Encounter Description Practice Location Reason(s) For Visit Diagnoses Date Provider Providers Copied on Encounter [facility], [address] [place], [place], [id number], [place] tel:[phone] [facility] No Information 6200 [id number] No Information Family History Family Member Type Diagnosis Age At Onset No Information Payers Payer name Insurance type Covered alliance party ID Authoriza tion(s) No Information Social History Type Description Quantity Date Captured Comments Sex Male Smoking Status No Information Chief Complaint And Reason For Visit No Information Reason For Referral Reason For Referral No Information History Of Present Illness Encounter Date Complaint History Of Prese nt Illness No Information Functional Status Date Functional Assessmen t No Information Instructions Date Instruction Additional Infor mation No Information Assessments Type Assessment Date No Information Patient Care Teams Name Effective Dates (start - stop) Status Members No Information
[2025-03-09 16:10] VITALS: BMI 37.0
--- OUTSIDE RECORDS SUMMARY | 2025-03-12 02:30 | XMS_ITS | Clinical Summary ---
Author Organization [facility] [address] Address [address] [place] [address] Care Team Providers Care Editor Greeting Card Name Role Phone Shabbir Licona MD Primary Care Provider + [phone] Allergies Active Allergy Reactions Criticality Noted Date [...] CHRISTIANO) 09/05/2020 Coronary artery disease invo lving [place] coronary artery of [place] heart without angina pectoris 09/05/2020 Hyperlipidemia Hypertension Encounters Date Type Department Care Team Description 03/09/2025 Telephone [facility] Cardiology [address] [place] [address] Mayank Lomeli MD from Last 3 Months Surgical History Surgery [...] Date Smoking Tobacco: Former Cigarettes Q uit: 2010 Smokeless Tobacco: Never Tobacco Cessation:Counseling Given: Not [...] 65+ 2021 Influenza Vaccine (#1) 2024 Insurance [facility] MEDICARE ADVANTAGE [facility] MEDICARE ADVANTAGE Care Teams Editor Greeting Card Relationship Specialty Start Date End Date Shabbir Licona MD [facility] - General 07/27/16
--- OUTSIDE RECORDS SUMMARY | 2025-03-12 02:31 | XMS_ITS | Encounter Summary ---
Author Organization [facility] Healthcare Address [address] [place] [address] Care Team Providers Care Development Professional Name Role Phone Shabbir Licona MD Primary Care Provider [phone] Encounter Details Date Type Department Care Team (Late st Contact Info) Description 03/09/2025 Telephone [facility] Medical [facility] Cardiology [address] [place] [address] Mayank Lomeli MD [address] [facility] [address], [place] [id number] Social History Tobacco Use Types Packs/Day Years Used Date Smoking Tobacco: Former Cigarettes Q uit: 2010 Smokeless Tobacco: Never Sex and Gender Information Value Date Recorded Sex Assigned at Not on file Legal Sex Male 4:12 PM CDT Gender Identity Not on file Sexual Orientation Not on file documented as of this encounter Miscellaneous Notes * Telephone Encounter - Carolyn Jeffries RN - 03/09/2025 1:36 PM [facility] STITCHER Spoke to Angie, faxed most recent office note to review. She will call back if she still needs clearance AG STITCHER * Telephone Encounter - Sheyla Gordon - 03/09/2025 12:04 PM CST Angie with [facility] states she faxed a cardiac clearance request to our office on 03/03 and pt is scheduled for surgery on 03/12. Also requesting most recent office visit note be faxed to their office. Thank you. Contact: AG STITCHER documented in this encounter Plan of Treatment Not on file documented as of this encounter Visit Diagnoses Not on filedocumented in this encounter Care Teams Development Professional Relationship Specialty Start Date End Date Shabbir Licona MD PCP - General 07/27/16 documented as of this encounter
--- OUTSIDE RECORDS SUMMARY | 2025-03-12 02:31 | XMS_ITS | Encounter Summary ---
Author Organization [facility] Medical [facility] Address [address] [facility] [address] [place] [id number] Care Team Providers Care Asp Developer Name Role Phone Shabbir Licona MD Primary Care Provider Encounter Details Date Type Department Care Team (Late st Contact Info) Description 07/13/2016 Orders Only [facility] ProviderKrissy MD [address] [place] [id number] Social History Tobacco Use Types Packs/Day [...] on filedocumented in this encounter Care Teams Asp Developer Relationship Specialty Start Date End Date Shabbir Licona MD PCP - General 07/27/16 documented as of this encounter
[2025-03-12 07:17] VITALS: BP 144/99; PULSE 79; RESP 20; TEMP 36.4; O2SAT 97; BMI 35.4
--- NOTE | 2025-03-12 07:23 | WPDANESEPPF ---
Anes - Initial Pre Proc Eval Procedure: Operation Date: 03/12/25 08:00 Proposed Procedures p Diagnostic Colonoscopy - Mc Rahman MD Date/Time: 03/12/25 07:23 Surgeon: Mc Rahman MD Pre Op Diagnosis: Constipation, unspecified Patient Data Age: 69 Gender: M Height: 1.85 m Weight: 122 kg Last Vital Signs Temp 36.4 C L 03/12/25 07:17 Pulse 79 03/12/25 07:17 Resp 20 03/12/25 07:17 BP 144/99 H 03/12/25 07:17 Pulse Ox 97 03/12/25 07:17 O2 Del Method Room Air 03/12/25 07:17 Allergies Allergy/AdvReac Type Severity Reaction Status Date / Time tramadol AdvReac Severe tongue Verified 03/12/25 07:14 swelling lisinopril AdvReac Intermediate Swelling Verified 03/12/25 07:14 of Lip/Tongue/Throat Home Medications ?Medication ?Instructions ?Recorded ?Confirmed ?Type fluticasone propionate 50 1 spray intranasal DAILY 06/09/19 03/12/25 History mcg/actuation nasal spray,suspension (Flonase Allergy Relief) aspirin 81 mg tablet,delayed 81 mg PO QAM 30 days #30 tabs 08/23/20 03/12/25 Rx release guanfacine 1 mg tablet 1 mg PO DAILY 07/24/23 03/12/25 History albuterol sulfate 1.25 mg/3 mL 1.25 mg (3 mL) inhalation Q4-6H 01/06/24 03/09/25 Rx solution for nebulization PRN shortness of breath or wheezing #75 mL albuterol sulfate 90 mcg/actuation 1 inh inhalation Q4H PRN shortness 06/14/24 03/09/25 Rx aerosol inhaler (Ventolin HFA) of breath or wheezing #8.5 grams metoprolol tartrate 25 mg tablet 25 mg PO BID #180 tabs 09/23/24 03/12/25 Rx amlodipine 5 mg tablet See Rx Instructions .Route 09/28/24 03/09/25 Rx .COMPLEX #90 tabs montelukast 10 mg tablet See Rx Instructions .Route 02/07/25 03/12/25 Rx .COMPLEX #90 tabs atorvastatin 80 mg tablet See Rx Instructions .Route 02/22/25 03/12/25 Rx .COMPLEX #90 tabs linaclotide 72 mcg capsule 72 mcg PO DAILY #30 caps 02/25/25 03/12/25 Rx (Linzess) crisaborole 2 % topical ointment 1 applic topical DAILY #60 grams 03/01/25 03/09/25 Rx (Eucrisa) doxycycline hyclate 100 mg tablet 100 mg PO DAILY #30 tabs 03/01/25 03/12/25 Rx amlodipine 10 mg tablet 10 mg PO DAILY 03/09/25 03/12/25 History Patient hx anesthesia problems: none Family hx anesthesia problems: none Results Review: All pre-operative results and documents have been reviewed as part of the pre-operative evaluation. [facility] Past Medical History Medical History History of heart attack CAD (coronary artery disease) History of ventricular tachycardia Chronic kidney disease, stage 3a Right rotator cuff tendinitis Trigger point of right shoulder region Deviated septum Arthritis of shoulder region, right, degenerative Capsulitis of right shoulder Right shoulder strain Seasonal allergies Vision abnormalities Mixed hyperlipidemia Essential (primary) hypertension Stage 3 acute kidney injury Polyarticular arthritis Visit for [facility] health check Surgical History Surgical History History of coronary artery stent placement 2020 Hx of colonoscopy History of appendectomy Family History Family History Mother Hypertension Alzheimer disease Father Family history of coronary artery disease Acute myocardial infarction Sibling Family history of coronary artery disease Cerebrovascular accident Sibling Family history of coronary artery disease Heart disease Other Family history of malignant neoplasm Social History Social History Smoking packs per day: 1 Smoking cigarettes per day: 20.0 Years smoked: 40 Smoking pack-years: 40.00 Smoking status: Former smoker Tobacco type: cigarettes Second hand tobacco smoke exposure: No Smoking end date: 04/29/09 Alcohol intake: current Drinks per week: 0 Alcohol use details: couple times a year Substance use: never Substance use type: does not use Do You Feel Safe in your Home?: Yes Lack of Transportation: No Lack of Food: Never True Current Housing: I Have Housing Concerned About Future Housing: No Difficulty Paying Gas/Electric Bills: No Difficulty Paying for Meds: No Currently Unemployed: No Education: High School Diploma/GED Difficulty w/ Childcare or Family Care: No Living arrangements: with family Occupation/Education: retired Additional occupation/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: [employer]. Gender identity (if verbalized by the patient): Male Spiritual care concerns: No Anes - Eval Final PreProcedure Day of Procedure 03/12/25 07:23 Patient weight: obese Heart: regular rate and rhythm Lungs: clear to auscultation Airway: Mallampati scale class III Neurological: alert and oriented Last oral intake: >/= 8 hours ASA classification: III Emergent: no Anesthetic plan: proceed Anesthesia type and monitoring: general GIVS and standard monitoring Results Review: All pre-operative results and documents have been reviewed as part of the pre-operative evaluation. Informed Consent: The patient's anesthetic plan and its attendant risks and benefits were discussed with the patient/family/POA. Questions were solicited and answers provided to the satisfaction of the patient/family/POA.
[2025-03-12] MEDS: LACTATED RINGERS 1,000 ML 150 ML IV CONT (07:24)
--- NOTE | 2025-03-12 08:03 | PM.HPGS ---
History of Present Illness History of Present Illness Consent: Risks, benefits, and alternatives have been discussed and questions answered. Patient agrees to proceed with procedure. Chief complaint: Constipation, unspecified Narrative: Pedro Joshua is a 69 year old male with last colonoscopy 2018, had polyp, also chronic constipation Review of Systems Review of Systems: All systems reviewed & are unremarkable except as noted in HPI and below PMFSH Past Medical History Medical History (Updated 03/12/25 @ 08:04 by Mc Rahman MD) Colon polyp History of heart attack CAD (coronary artery disease) History of ventricular tachycardia Chronic kidney disease, stage 3a Right rotator cuff tendinitis Trigger point of right shoulder region Deviated septum Arthritis of shoulder region, right, degenerative Capsulitis of right shoulder Right shoulder strain Seasonal allergies Vision abnormalities Mixed hyperlipidemia Essential (primary) hypertension Stage 3 acute kidney injury Polyarticular arthritis Visit for [facility] health check Surgical History Surgical History History of coronary artery stent placement 2020 Hx of colonoscopy History of appendectomy Family History Family History Mother Hypertension Alzheimer disease Father Family history of coronary artery disease Acute myocardial infarction Sibling Family history of coronary artery disease Cerebrovascular accident Sibling Family history of coronary artery disease Heart disease Other Family history of malignant neoplasm Social History Social History Smoking packs per day: 1 Smoking cigarettes per day: 20.0 Years smoked: 40 Smoking pack-years: 40.00 Smoking status: Former smoker Tobacco type: cigarettes Second hand tobacco smoke exposure: No Smoking end date: 04/29/09 Alcohol intake: current Drinks per week: 0 Alcohol use details: couple times a year Substance use: never Substance use type: does not use Do You Feel Safe in your Home?: Yes Lack of Transportation: No Lack of Food: Never True Current Housing: I Have Housing Concerned About Future Housing: No Difficulty Paying Gas/Electric Bills: No Difficulty Paying for Meds: No Currently Unemployed: No Education: High School Diploma/GED Difficulty w/ Childcare or Family Care: No Living arrangements: with family Occupation/Education: retired Additional occupation/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: [employer]. Gender identity (if verbalized by the patient): Male Spiritual care concerns: No Meds Home Medications and Allergies Home Medications ?Medication ?Instructions ?Recorded ?Confirmed ?Type fluticasone propionate 50 1 spray intranasal DAILY 06/09/19 03/12/25 History mcg/actuation nasal spray,suspension (Flonase Allergy Relief) aspirin 81 mg tablet,delayed 81 mg PO QAM 30 days #30 tabs 08/23/20 03/12/25 Rx release guanfacine 1 mg tablet 1 mg PO DAILY 07/24/23 03/12/25 History albuterol sulfate 1.25 mg/3 mL 1.25 mg (3 mL) inhalation Q4-6H 01/06/24 03/09/25 Rx solution for nebulization PRN shortness of breath or wheezing #75 mL albuterol sulfate 90 mcg/actuation 1 inh inhalation Q4H PRN shortness 06/14/24 03/09/25 Rx aerosol inhaler (Ventolin HFA) of breath or wheezing #8.5 grams metoprolol tartrate 25 mg tablet 25 mg PO BID #180 tabs 09/23/24 03/12/25 Rx amlodipine 5 mg tablet See Rx Instructions .Route 09/28/24 03/09/25 Rx .COMPLEX #90 tabs montelukast 10 mg tablet See Rx Instructions .Route 02/07/25 03/12/25 Rx .COMPLEX #90 tabs atorvastatin 80 mg tablet See Rx Instructions .Route 02/22/25 03/12/25 Rx .COMPLEX #90 tabs linaclotide 72 mcg capsule 72 mcg PO DAILY #30 caps 02/25/25 03/12/25 Rx (Linzess) crisaborole 2 % topical ointment 1 applic topical DAILY #60 grams 03/01/25 03/09/25 Rx (Eucrisa) doxycycline hyclate 100 mg tablet 100 mg PO DAILY #30 tabs 03/01/25 03/12/25 Rx amlodipine 10 mg tablet 10 mg PO DAILY 03/09/25 03/12/25 History Allergies Allergy/AdvReac Type Severity Reaction Status Date / Time tramadol AdvReac Severe tongue Verified 03/12/25 07:14 swelling lisinopril AdvReac Intermediate Swelling Verified 03/12/25 07:14 of Lip/Tongue/Throat Vital Signs Vital Signs - 24 hr 03/12/25 07:17 Temperature 97.5 F L Pulse Rate 79 Respiratory Rate 20 Blood Pressure 144/99 H Pulse Oximetry 97 Oxygen Delivery Room Air Exam Const: General: comfortable and no acute distress HENMT: Face/Nose/Sinus: Normal nares present Eyes: General: appearance normal, both eyes and all related structures Neck: Neck: no JVD Resp: Auscultation: clear to auscultation bilaterally Cardio: Rate: regular rate Rhythm: regular rhythm GI: Inspection: non-distended GI Palp: Yes Soft to palpation Skin: General skin exam: normal color Extrem: General: normal to inspection Psych: Mental Status: mental status grossly normal Assessment and Plan Assessment and plan (1) Constipation: Qualifiers: Constipation type: unspecified constipation type Qualified Code(s): K59.00 - Constipation, unspecified Code(s): K59.00 - Constipation, unspecified Status: Acute Assessment and Plan: colonoscopy (2) Colon polyp: Code(s): K63.5 - Polyp of colon Status: Acute
[2025-03-12 08:16] VITALS: BP 110/72; PULSE 73; RESP 23; O2SAT 97
--- NOTE | 2025-03-12 08:16 | S_PTH ---
PATIENT: Pedro Joshua LOC: [facility]#:[id number] AGE/SX: 69/M ROOM: RE03/12/[address]: Mc Rahman MD : 1955 BED: DIS: 03/12/2025 SPEC #: [id number] RECD: 03/12/25 10:54 STATUS: FRANSICO REQ #: [id number] ROBERTA: 03/12/25 08:[address]: Mc Rahman DEPT: [facility] Surgical RECD BY: Juanita Diaz ENTERED: 03/12/25 10:55 SP TYPE: Surgical OTHR DR: Shabbir Licona MD Tissues: A - Colon Polypectomy B - Colon Polypectomy Procedures: Hematoxylin and Eosin Stain Gross and Microscopic Level 4
[2025-03-12 08:26] VITALS: BP 147/76; PULSE 77; RESP 21; O2SAT 98
[2025-03-12 08:36] VITALS: BP 139/93; PULSE 68; RESP 15; O2SAT 98
== END 2025-03-12 08:41 | disposition home or self-care (01) ==
PROVIDERS: PCP Family Medicine; Referring Provider Nurse Practitioner Family; Visit Provider Internal Medicine Gastroenterology
PROC: 0DJD8ZZ Inspection of Lower Intestinal Tract, Via Natural or Artificial Opening Endoscopic (ICD-10-PCS; CPT 45378; principal; 2025-03-12 08:00)
DX: D12.0 Benign neoplasm of cecum (principal); D12.3 Benign neoplasm of transverse colon; K64.8 Other hemorrhoids; I12.9 Hypertensive chronic kidney disease with stage 1 through stage 4 chronic kidney disease, or unspecified chronic kidney disease; N18.31 Chronic kidney disease, stage 3a; E78.2 Mixed hyperlipidemia; M19.011 Primary osteoarthritis, right shoulder; I25.2 Old myocardial infarction; I25.10 Atherosclerotic heart disease of native coronary artery without angina pectoris; I47.20 Ventricular tachycardia, unspecified; E66.9 Obesity, unspecified; Z68.35 Body mass index [BMI] 35.0-35.9, adult; Z79.82 Long term (current) use of aspirin; Z79.51 Long term (current) use of inhaled steroids; Z98.890 Other specified postprocedural states; Z95.5 Presence of coronary angioplasty implant and graft; Z87.891 Personal history of nicotine dependence; Z80.9 Family history of malignant neoplasm, unspecified; Z82.49 Family history of ischemic heart disease and other diseases of the circulatory system
CPT/HCPCS: 45380; 88305; J2704; J7120

== ENCOUNTER 2025-04-06 06:45 | Outpatient (CLI) | payer MEDICARE, SELFPAY ==
[2025-04-06 07:23] LABS: Hematocrit 45.7 % (42.0-52.0); Hemoglobin 15.1 g/dL (14.0-18.0); Mean Corpuscular HGB Conc 33.0 g/dl (32-36); Mean Corpuscular Hemoglobin 31.0 pg (26-34); Mean Corpuscular Volume 93.8 fl (80-100); Platelet Count Result 274 k/mm3 (150-375); Red Blood Count 4.87 M/mm3 (4.6-6.20); White Blood Count 5.5 K/mm3 (4.5-10.0)
[2025-04-06 07:52] LABS: Alanine Aminotransferase 33 U/L (6-50); Albumin Level 4.7 g/dL (3.5-5.1); Alkaline Phosphatase 87 U/L (38-126); Anion Gap 6 mmol/L (4-12); Aspartate Amino Transferase 41 U/L (17-59); Bilirubin,Total 0.9 mg/dL (0.2-1.3); Blood Urea Nitrogen 21 mg/dL (9-20); Calcium 9.4 mg/dL (8.4-10.2); Carbon Dioxide 28 mmol/L (22-30); Chloride 105 mmol/L (98-107); Cholesterol 151 mg/dL (0-200); Estimated Glomerular Filt Rate 53; Glucose 109 mg/dL (65-110); HDL Direct 48 mg/dL; Potassium 4.0 mmol/L (3.4-5.0); Sodium 139 mmol/L (137-145); Total Protein 8.0 g/dL (6.3-8.2); Triglycerides 152 mg/dL (<150)
[2025-04-06 08:30] LABS: Prostate Specific Antigen 0.6 ng/mL (< OR = 4.0); Thyroid Stimulating Hormone 2.840 uIU/mL (0.465-4.680)
== END 2025-04-06 06:46 | disposition home or self-care (01) ==
LOC: ANHLAB 06:46
PROVIDERS: PCP Family Medicine; Visit Provider Nurse Practitioner Family
DX: J30.2 Other seasonal allergic rhinitis (principal); I10 Essential (primary) hypertension; Z12.5 Encounter for screening for malignant neoplasm of prostate; R63.5 Abnormal weight gain; E55.9 Vitamin D deficiency, unspecified; N18.31 Chronic kidney disease, stage 3a
CPT/HCPCS: 36415; 80053; 80061; 82306; 84153; 84443; 85027; G0103